=== PATIENT | female | born 1955 | race African-American/Black ===

== ENCOUNTER 2019-11-23 20:59 | Inpatient (IN) ==
[2019-11-23] MEDS ORDERED: PNEUMOCOCCAL VACCINE (23 VALENT) 0.5 ML VIAL IM ONE (23:23)
[2019-11-24] MEDS ORDERED: PROMETHAZINE 25 MG/1 ML VIAL IM PRN (00:40)
[2019-11-24] MEDS ORDERED: DEXTROSE 10% 250 ML BAG IV PRN (00:40)
[2019-11-24] MEDS ORDERED: ALBUTEROL 2.5 MG/3 ML NEB RESP TX PRN (00:40)
[2019-11-24] MEDS ORDERED: GLUCAGON 1 MG VIAL IM PRN (00:40)
[2019-11-24] MEDS ORDERED: ONDANSETRON 4 MG/2 ML VIAL IV PRN (00:40)
[2019-11-24] MEDS ORDERED: PANTOPRAZOLE 40 MG VIAL IV SCH (01:00)
[2019-11-24] MEDS ORDERED: SODIUM CHLORIDE 0.9% 1,000 ML IV SCH (01:00)
[2019-11-24] MEDS ORDERED: ENOXAPARIN 40 MG/0.4 ML SYRINGE SUBCUT SCH (01:30)
[2019-11-24 04:21] LABS: Basophils % 0.2 % (0.0-0.8); Hematocrit 41.8 VOL% (35.7-47.0); Immature Granulocytes % 0.5 %; Immature Granulocytes Absolute 0.03 #; Lymphocytes # 0.5 10*3/uL (1.4-4.0); Mean Corpuscular HGB Conc 31.1 GM/DL (32-36); Mean Corpuscular Volume 81.3 FL (87-102); Mean Platelet Volume 10.1 FL (9.6-12.0); Neutrophils % 87.3 % (38.7-73.9); Platelet Count 226 T/CUMM (130-400); Red Blood Count 5.14 MC/CUMM (3.8-5.5); Red Cell Distribution Width 15.8 % (9.3-17.3); White Blood Count 6.2 T/CUMM (4-12)
[2019-11-24 04:54] LABS: Calcium 8.5 MG/DL (8.5-10.1); Osmolality,Calculated 279.8 MOS/KG (273-304)
[2019-11-24] MEDS: INSULIN REGULAR 100 UNIT/ML SUBCUT SCH ×4 (08:12→21:17)
[2019-11-24] MEDS: amLODIPine 5 MG TABLET PO SCH (08:13)
[2019-11-24] MEDS: GABAPENTIN 300 MG CAPSULE PO SCH ×3 (08:13→20:20)
[2019-11-24] MEDS: metFORMIN 500 MG TABLET PO SCH ×2 (08:13→20:20)
[2019-11-24] MEDS: DEXAMETHASONE 4 MG/1 ML VIAL IV SCH (08:13)
[2019-11-24] MEDS: CALCIUM (CARBONATE)/VITAMIN D 600 MG-400 UNIT TABLET PO SCH (08:13)
[2019-11-24] MEDS: MONTELUKAST 10 MG TABLET PO SCH (08:13)
[2019-11-24 10:41] LABS: Allen Test Positive; Pt O2 Delivery Device Other
[2019-11-24 10:42] LABS: ABG HCO3 29.5 MMOL/L (20-26); ABG Oxygen Saturation 85.8 % (95-100); ABG PCO2 45.8 MM HG (35-48); ABG PO2 53.7 MM HG (80-95)
[2019-11-24] MEDS: ACETAMINOPHEN 325 MG TABLET PO PRN (12:05)
[2019-11-24] MEDS: ENOXAPARIN 60 MG/0.6 ML SYRINGE SUBCUT SCH (20:20)
[2019-11-25 03:53] LABS: Basophils % 0.1 % (0.0-0.8); Hematocrit 42.5 VOL% (35.7-47.0); Immature Granulocytes % 0.9 %; Immature Granulocytes Absolute 0.09 #; Lymphocytes # 0.6 10*3/uL (1.4-4.0); Lymphocytes % 5.5 % (21.3-54.2); Mean Corpuscular HGB Conc 30.6 GM/DL (32-36); Mean Corpuscular Volume 81.9 FL (87-102); Mean Platelet Volume 9.8 FL (9.6-12.0); Monocytes % 5.2 % (1.7-12.7); NRBC # 0.03 10*3/uL; Neutrophils % 88.3 % (38.7-73.9); Platelet Count 233 T/CUMM (130-400); Red Blood Count 5.19 MC/CUMM (3.8-5.5); Red Cell Distribution Width 15.8 % (9.3-17.3)
[2019-11-25 04:06] LABS: Calcium 8.7 MG/DL (8.5-10.1); Osmolality,Calculated 277.5 MOS/KG (273-304)
[2019-11-25 05:12] LABS: Allen Test Positive; Pt O2 Delivery Device Other
[2019-11-25 05:13] LABS: ABG Base Excess 7.6 MMOL/L (-2.5-2.5); ABG HCO3 32.1 MMOL/L (20-26); ABG Oxygen Saturation 82.7 % (95-100); ABG PCO2 44.6 MM HG (35-48); ABG PH 7.475 (7.35-7.45); ABG PO2 46.9 MM HG (80-95); ABG TCO2 33.5 MMOL/L (23-27)
[2019-11-25] MEDS ORDERED: PANTOPRAZOLE 40 MG VIAL IV ONE (07:49)
[2019-11-25] MEDS: DEXAMETHASONE 4 MG/1 ML VIAL IV SCH ×2 (07:56→20:25)
[2019-11-25] MEDS: INSULIN REGULAR 100 UNIT/ML SUBCUT SCH ×4 (07:57→21:24)
[2019-11-25] MEDS: ENOXAPARIN 60 MG/0.6 ML SYRINGE SUBCUT SCH ×2 (08:00→20:01)
[2019-11-25] MEDS: metFORMIN 500 MG TABLET PO SCH ×2 (08:00→20:26)
[2019-11-25] MEDS: amLODIPine 5 MG TABLET PO SCH (08:00)
[2019-11-25] MEDS: GABAPENTIN 300 MG CAPSULE PO SCH ×3 (08:01→20:00)
[2019-11-25] MEDS: CALCIUM (CARBONATE)/VITAMIN D 600 MG-400 UNIT TABLET PO SCH (08:01)
[2019-11-25] MEDS: PANTOPRAZOLE 40 MG VIAL IV SCH (08:01)
[2019-11-25] MEDS: MONTELUKAST 10 MG TABLET PO SCH (08:01)
[2019-11-25] MEDS ORDERED: POTASSIUM CHLORIDE 20 MEQ TABLET PO ONE (12:32)
[2019-11-25] MEDS: ACETAMINOPHEN 325 MG TABLET PO PRN (12:55)
[2019-11-26 04:35] LABS: Basophils % 0.1 % (0.0-0.8); Hematocrit 42.1 VOL% (35.7-47.0); Immature Granulocytes % 1.3 %; Immature Granulocytes Absolute 0.13 #; Lymphocytes # 0.5 10*3/uL (1.4-4.0); Mean Corpuscular HGB Conc 30.9 GM/DL (32-36); Mean Corpuscular Volume 80.8 FL (87-102); Mean Platelet Volume 9.8 FL (9.6-12.0); NRBC # 0.02 10*3/uL; Neutrophils % 90.6 % (38.7-73.9); Platelet Count 244 T/CUMM (130-400); Red Blood Count 5.21 MC/CUMM (3.8-5.5); Red Cell Distribution Width 15.9 % (9.3-17.3); White Blood Count 10.2 T/CUMM (4-12)
[2019-11-26 04:55] LABS: Lymphocytes 4 % (20-55); Platelet Estimate Adequate; Segmented Neutrophils 96 % (50-85); Total Cells Counted 100
[2019-11-26 04:56] LABS: Hypochromasia 1+
[2019-11-26 05:07] LABS: Calcium 8.8 MG/DL (8.5-10.1); Osmolality,Calculated 271.7 MOS/KG (273-304)
[2019-11-26 05:16] LABS: ABG Base Excess 6.4 MMOL/L (-2.5-2.5); ABG Oxygen Saturation 87.1 % (95-100); ABG PCO2 44.7 MM HG (35-48); ABG PH 7.453 (7.35-7.45); ABG TCO2 27.2 MMOL/L (23-27); Allen Test Positive; Pt O2 Delivery Device Other
[2019-11-26] MEDS ORDERED: SODIUM CHLORIDE 0.9% 1,000 ML IV PRN (07:22)
[2019-11-26] MEDS: INSULIN REGULAR 100 UNIT/ML SUBCUT SCH ×4 (07:50→21:32)
[2019-11-26] MEDS: PANTOPRAZOLE 40 MG VIAL IV SCH (08:10)
[2019-11-26] MEDS: DEXAMETHASONE 4 MG/1 ML VIAL IV SCH ×2 (08:18→22:00)
[2019-11-26] MEDS: GABAPENTIN 300 MG CAPSULE PO SCH ×3 (08:19→21:43)
[2019-11-26] MEDS: amLODIPine 5 MG TABLET PO SCH (08:20)
[2019-11-26] MEDS: ENOXAPARIN 60 MG/0.6 ML SYRINGE SUBCUT SCH ×2 (08:20→21:30)
[2019-11-26] MEDS: MONTELUKAST 10 MG TABLET PO SCH (08:20)
[2019-11-26] MEDS: CALCIUM (CARBONATE)/VITAMIN D 600 MG-400 UNIT TABLET PO SCH (08:20)
[2019-11-26] MEDS: metFORMIN 500 MG TABLET PO SCH ×2 (08:20→21:43)
[2019-11-26] MEDS ORDERED: FUROSEMIDE 40 MG/4 ML VIAL IV ONE (17:29)
[2019-11-26] MEDS: cefTRIAXone 1,000 MG in SYRINGE 1 EACH IV SCH (18:53)
[2019-11-26] MEDS: AZITHROMYCIN INJ 500 MG in SODIUM CHLORIDE 0.9% 250 ML IV SCH (19:17)
[2019-11-26 22:03] LABS: Bilirubin,Urine Negative (Negative); Blood, Urine Small mg/dL (Negative); Glucose,Urine (UA) Negative (Negative); Ketones,Urine Negative (Negative); Mucus,Urine Occasional /LPF (Occasional); Nitrite,Urine Negative (Negative); Protein,Urine Negative; RBC,Urine <1 /HPF (0-4); Urine Appearance CLEAR (Clear); Urine Color Straw (Yellow); Urine Specific Gravity 1.008 (1.001-1.035); Urine Urobilinogen < 2.0 EU/DL (0.2-1.0); WBC,Urine 1 /HPF (0-6)
[2019-11-27 04:34] LABS: Basophils % 0.3 % (0.0-0.8); Hemoglobin 12.7 GM/DL (12.0-16.0); Immature Granulocytes % 1.7 %; Mean Platelet Volume 10.1 FL (9.6-12.0); Monocytes % 3.9 % (1.7-12.7); Neutrophils % 86.1 % (38.7-73.9); Platelet Count 260 T/CUMM (130-400); Red Blood Count 5.06 MC/CUMM (3.8-5.5); Red Cell Distribution Width 15.9 % (9.3-17.3); White Blood Count 11.9 T/CUMM (4-12)
[2019-11-27 04:55] LABS: Eosinophils 1 % (0-10); Hypochromasia Slight; Lymphocytes 5 % (20-55); Platelet Estimate Adequate; Segmented Neutrophils 92 % (50-85); Total Cells Counted 100
[2019-11-27 05:04] LABS: Calcium 8.7 MG/DL (8.5-10.1); Osmolality,Calculated 277.8 MOS/KG (273-304)
[2019-11-27 05:35] LABS: Allen Test Positive
[2019-11-27 05:36] LABS: ABG Base Excess 7.1 MMOL/L (-2.5-2.5); ABG PCO2 46.2 MM HG (35-48); ABG PH 7.458 (7.35-7.45); ABG PO2 55.5 MM HG (80-95); ABG TCO2 33.4 MMOL/L (23-27)
[2019-11-27] MEDS: GABAPENTIN 300 MG CAPSULE PO SCH ×3 (08:16→20:33)
[2019-11-27] MEDS: CALCIUM (CARBONATE)/VITAMIN D 600 MG-400 UNIT TABLET PO SCH (08:16)
[2019-11-27] MEDS: MONTELUKAST 10 MG TABLET PO SCH (08:16)
[2019-11-27] MEDS: metFORMIN 500 MG TABLET PO SCH ×2 (08:16→20:33)
[2019-11-27] MEDS: amLODIPine 5 MG TABLET PO SCH (08:16)
[2019-11-27] MEDS: PANTOPRAZOLE 40 MG VIAL IV SCH (08:17)
[2019-11-27] MEDS: ENOXAPARIN 60 MG/0.6 ML SYRINGE SUBCUT SCH ×2 (08:17→20:33)
[2019-11-27] MEDS: DEXAMETHASONE 4 MG/1 ML VIAL IV SCH ×2 (08:18→20:26)
[2019-11-27] MEDS: INSULIN REGULAR 100 UNIT/ML SUBCUT SCH ×4 (10:51→20:33)
[2019-11-27] MEDS ORDERED: FUROSEMIDE 40 MG/4 ML VIAL IV ONE (20:06)
[2019-11-27] MEDS ORDERED: hydrALAZINE 20 MG/1 ML VIAL IV PRN (20:06)
[2019-11-27] MEDS ORDERED: FUROSEMIDE 40 MG/4 ML VIAL ONE (20:09)
[2019-11-27] MEDS: cefTRIAXone 1,000 MG in SYRINGE 1 EACH IV SCH (20:20)
[2019-11-27] MEDS: AZITHROMYCIN INJ 500 MG in SODIUM CHLORIDE 0.9% 250 ML IV SCH (20:25)
[2019-11-28 04:43] LABS: Basophils % 0.3 % (0.0-0.8); Hematocrit 39.4 VOL% (35.7-47.0); Hemoglobin 12.3 GM/DL (12.0-16.0); Immature Granulocytes % 2.3 %; Immature Granulocytes Absolute 0.27 #; Lymphocytes # 0.8 10*3/uL (1.4-4.0); Lymphocytes % 6.9 % (21.3-54.2); Mean Corpuscular HGB Conc 31.2 GM/DL (32-36); Mean Corpuscular Volume 81.2 FL (87-102); Mean Platelet Volume 9.5 FL (9.6-12.0); Monocytes % 4.5 % (1.7-12.7); NRBC # 0.02 10*3/uL; Platelet Count 245 T/CUMM (130-400); Red Blood Count 4.85 MC/CUMM (3.8-5.5); Red Cell Distribution Width 15.6 % (9.3-17.3); White Blood Count 11.9 T/CUMM (4-12)
[2019-11-28 04:59] LABS: Calcium 8.7 MG/DL (8.5-10.1)
[2019-11-28 05:06] LABS: Hypochromasia 1+; Lymphocytes 6 % (20-55); Microcytosis Slight; Platelet Estimate Adequate; Segmented Neutrophils 90 % (50-85); Total Cells Counted 100
[2019-11-28 05:28] LABS: ABG Base Excess 9.5 MMOL/L (-2.5-2.5); ABG HCO3 32.9 MMOL/L (20-26); ABG Oxygen Saturation 85.6 % (95-100); ABG PCO2 48.1 MM HG (35-48); ABG PH 7.467 (7.35-7.45); ABG PO2 52.7 MM HG (80-95); ABG TCO2 30.4 MMOL/L (23-27); Allen Test Positive
[2019-11-28] MEDS: DEXAMETHASONE 4 MG/1 ML VIAL IV SCH ×2 (10:11→20:25)
[2019-11-28] MEDS: PANTOPRAZOLE 40 MG VIAL IV SCH (10:11)
[2019-11-28] MEDS: CALCIUM (CARBONATE)/VITAMIN D 600 MG-400 UNIT TABLET PO SCH (10:12)
[2019-11-28] MEDS: ENOXAPARIN 60 MG/0.6 ML SYRINGE SUBCUT SCH ×2 (10:12→20:25)
[2019-11-28] MEDS: MONTELUKAST 10 MG TABLET PO SCH (10:12)
[2019-11-28] MEDS: GABAPENTIN 300 MG CAPSULE PO SCH ×3 (10:12→20:25)
[2019-11-28] MEDS: metFORMIN 500 MG TABLET PO SCH ×2 (10:12→20:25)
[2019-11-28] MEDS: amLODIPine 5 MG TABLET PO SCH (10:13)
[2019-11-28] MEDS: INSULIN REGULAR 100 UNIT/ML SUBCUT SCH ×4 (10:13→21:05)
[2019-11-28] MEDS ORDERED: FUROSEMIDE 40 MG/4 ML VIAL IV ONE (10:58)
[2019-11-28] MEDS ORDERED: POTASSIUM CHLORIDE 20 MEQ TABLET PO ONE (16:10)
[2019-11-28] MEDS: cefTRIAXone 1,000 MG in SYRINGE 1 EACH IV SCH (19:04)
[2019-11-28] MEDS: AZITHROMYCIN INJ 500 MG in SODIUM CHLORIDE 0.9% 250 ML IV SCH (19:04)
[2019-11-29 05:03] LABS: Basophils % 0.3 % (0.0-0.8); Hematocrit 41.3 VOL% (35.7-47.0); Hemoglobin 12.6 GM/DL (12.0-16.0); Immature Granulocytes % 1.8 %; Immature Granulocytes Absolute 0.27 #; Lymphocytes # 0.5 10*3/uL (1.4-4.0); Lymphocytes % 3.3 % (21.3-54.2); Mean Corpuscular HGB Conc 30.5 GM/DL (32-36); Mean Corpuscular Volume 83.6 FL (87-102); Mean Platelet Volume 10.2 FL (9.6-12.0); Monocytes % 2.5 % (1.7-12.7); NRBC # 0.02 10*3/uL; Neutrophils % 92.1 % (38.7-73.9); Platelet Count 274 T/CUMM (130-400); Red Blood Count 4.94 MC/CUMM (3.8-5.5); Red Cell Distribution Width 15.9 % (9.3-17.3); White Blood Count 14.9 T/CUMM (4-12)
[2019-11-29 05:29] LABS: Osmolality,Calculated 278.8 MOS/KG (273-304)
[2019-11-29 06:36] LABS: Band Neutrophils 1 % (0-10); Lymphocytes 2 % (20-55); Segmented Neutrophils 94 % (50-85); Total Cells Counted 100
[2019-11-29 06:37] LABS: Anisocytosis 1+; Platelet Estimate Normal
[2019-11-29] MEDS: INSULIN REGULAR 100 UNIT/ML SUBCUT SCH ×3 (08:00→18:45)
[2019-11-29 08:02] LABS: ABG Base Excess 7.1 MMOL/L (-2.5-2.5); ABG HCO3 30.1 MMOL/L (20-26); ABG Oxygen Saturation 63.4 % (95-100); ABG PCO2 47.6 MM HG (35-48); ABG PH 7.443 (7.35-7.45); ABG TCO2 28.6 MMOL/L (23-27)
[2019-11-29 08:04] LABS: ABG PO2 36.1 MM HG (80-95)
[2019-11-29] MEDS ORDERED: propofoL 200 MG/20 ML VIAL IV ONE (08:18)
[2019-11-29] MEDS ORDERED: MIDAZOLAM 10 MG/2 ML VIAL ONE (08:18)
[2019-11-29] MEDS ORDERED: SUCCINYLCHOLINE 200 MG/10 ML VIAL ONE (08:19)
[2019-11-29] MEDS ORDERED: MIDAZOLAM 2 MG/2 ML VIAL IV ONE ×4 (08:24→08:41)
[2019-11-29] MEDS ORDERED: SUCCINYLCHOLINE 200 MG/10 ML VIAL IV ONE (08:29)
[2019-11-29] MEDS: ENOXAPARIN 60 MG/0.6 ML SYRINGE SUBCUT SCH ×2 (09:00→20:10)
[2019-11-29] MEDS: PANTOPRAZOLE 40 MG VIAL IV SCH (09:00)
[2019-11-29] MEDS: CALCIUM (CARBONATE)/VITAMIN D 600 MG-400 UNIT TABLET PO SCH (09:00)
[2019-11-29] MEDS: metFORMIN 500 MG TABLET PO SCH ×2 (09:00→20:10)
[2019-11-29] MEDS: DEXAMETHASONE 4 MG/1 ML VIAL IV SCH ×2 (09:00→20:10)
[2019-11-29] MEDS: MONTELUKAST 10 MG TABLET PO SCH (09:01)
[2019-11-29] MEDS: GABAPENTIN 300 MG CAPSULE PO SCH ×2 (09:01→15:04)
[2019-11-29] MEDS: amLODIPine 5 MG TABLET PO SCH (09:01)
[2019-11-29] MEDS ORDERED: VECURONIUM 10 MG VIAL IV ONE (09:24)
[2019-11-29 09:36] LABS: ABG Base Excess 3.5 MMOL/L (-2.5-2.5); ABG HCO3 27.5 MMOL/L (20-26); ABG Oxygen Saturation 96.6 % (95-100); ABG PCO2 43.8 MM HG (35-48); ABG PH 7.421 (7.35-7.45); ABG PO2 93.3 MM HG (80-95); ABG TCO2 25.1 MMOL/L (23-27)
[2019-11-29] MEDS: fentaNYL INJ 1,250 MCG in SODIUM CHLORIDE 0.9% 225 ML IV PRN ×2 (09:45→21:14)
[2019-11-29] MEDS ORDERED: SODIUM CHLORIDE 0.9% 1,000 ML IV ONE (12:32)
[2019-11-29] MEDS ORDERED: NOREPINEPHRINE 8 MG in SODIUM CHLORIDE 0.9% 242 ML IV PRN (16:00)
[2019-11-29] MEDS: cefTRIAXone 1,000 MG in SYRINGE 1 EACH IV SCH (18:45)
[2019-11-29] MEDS: AZITHROMYCIN INJ 500 MG in SODIUM CHLORIDE 0.9% 250 ML IV SCH (18:45)
[2019-11-29] MEDS: GABAPENTIN 50 MG/ML 30 ML/BOTTLE PO SCH (21:55)
[2019-11-30] MEDS: INSULIN REGULAR 100 UNIT/ML SUBCUT SCH ×4 (00:33→17:45)
[2019-11-30 04:15] LABS: Basophils % 0.2 % (0.0-0.8); Hematocrit 38.8 VOL% (35.7-47.0); Hemoglobin 11.6 GM/DL (12.0-16.0); Immature Granulocytes % 2.8 %; Immature Granulocytes Absolute 0.35 #; Lymphocytes # 0.3 10*3/uL (1.4-4.0); Lymphocytes % 2.3 % (21.3-54.2); Mean Corpuscular HGB Conc 29.9 GM/DL (32-36); Mean Corpuscular Volume 83.6 FL (87-102); Mean Platelet Volume 11.4 FL (9.6-12.0); Monocytes % 2.3 % (1.7-12.7); NRBC # 0.02 10*3/uL; Neutrophils % 92.4 % (38.7-73.9); Platelet Count 283 T/CUMM (130-400); Red Blood Count 4.64 MC/CUMM (3.8-5.5); Red Cell Distribution Width 15.8 % (9.3-17.3); White Blood Count 12.3 T/CUMM (4-12)
[2019-11-30 04:29] LABS: Osmolality,Calculated 291.5 MOS/KG (273-304)
[2019-11-30 05:04] LABS: ABG Base Excess 2.5 MMOL/L (-2.5-2.5); ABG HCO3 28.9 MMOL/L (20-26); ABG Oxygen Saturation 94.3 % (95-100); ABG PCO2 52.3 MM HG (35-48); ABG PO2 78.7 MM HG (80-95); ABG TCO2 30.5 MMOL/L (23-27); Allen Test Positive; Pt O2 Delivery Device Ventilator
[2019-11-30] MEDS: fentaNYL INJ 1,250 MCG in SODIUM CHLORIDE 0.9% 225 ML IV PRN (06:59)
[2019-11-30 08:17] LABS: Band Neutrophils 6 % (0-10); Lymphocytes 3 % (20-55); Platelet Estimate Normal; Segmented Neutrophils 88 % (50-85); Total Cells Counted 100
[2019-11-30] MEDS: MIDAZOLAM 100 MG in SODIUM CHLORIDE 0.9% 80 ML IV PRN ×2 (08:40→23:30)
[2019-11-30] MEDS: DEXAMETHASONE 4 MG/1 ML VIAL IV SCH ×2 (08:58→20:15)
[2019-11-30] MEDS: ENOXAPARIN 60 MG/0.6 ML SYRINGE SUBCUT SCH ×2 (08:58→20:15)
[2019-11-30] MEDS: PANTOPRAZOLE 40 MG VIAL IV SCH (08:58)
[2019-11-30] MEDS: metFORMIN 500 MG TABLET PO SCH ×2 (08:59→20:15)
[2019-11-30] MEDS: MONTELUKAST 10 MG TABLET PO SCH (08:59)
[2019-11-30] MEDS: CALCIUM (CARBONATE)/VITAMIN D 600 MG-400 UNIT TABLET PO SCH (08:59)
[2019-11-30] MEDS: GABAPENTIN 50 MG/ML 30 ML/BOTTLE PO SCH ×3 (09:05→20:15)
[2019-11-30] MEDS: fentaNYL INJ 2,500 MCG in SODIUM CHLORIDE 0.9% 450 ML IV PRN ×4 (09:29→23:25)
[2019-11-30] MEDS ORDERED: REMDESIVIR 200 MG in SODIUM CHLORIDE 0.9% 210 ML IV ONE (17:00)
[2019-11-30] MEDS: cefTRIAXone 1,000 MG in SYRINGE 1 EACH IV SCH (17:31)
[2019-11-30] MEDS: AZITHROMYCIN INJ 500 MG in SODIUM CHLORIDE 0.9% 250 ML IV SCH (18:44)
[2019-12-01] MEDS: INSULIN REGULAR 100 UNIT/ML SUBCUT SCH ×4 (00:20→17:41)
[2019-12-01] MEDS: fentaNYL INJ 2,500 MCG in SODIUM CHLORIDE 0.9% 450 ML IV PRN ×6 (03:46→23:30)
[2019-12-01 03:49] LABS: Basophils % 0.1 % (0.0-0.8); Eosinophils % 0.1 % (0.00-10.9); Hemoglobin 10.7 GM/DL (12.0-16.0); Immature Granulocytes % 1.3 %; Immature Granulocytes Absolute 0.11 #; Lymphocytes # 0.3 10*3/uL (1.4-4.0); Lymphocytes % 3.4 % (21.3-54.2); Mean Corpuscular HGB Conc 29.4 GM/DL (32-36); Mean Corpuscular Volume 86.5 FL (87-102); Mean Platelet Volume 10.8 FL (9.6-12.0); Monocytes % 3.3 % (1.7-12.7); Neutrophils % 91.8 % (38.7-73.9); Platelet Count 219 T/CUMM (130-400); Red Blood Count 4.21 MC/CUMM (3.8-5.5); Red Cell Distribution Width 15.8 % (9.3-17.3); White Blood Count 8.5 T/CUMM (4-12)
[2019-12-01 04:09] LABS: Calcium 8.8 MG/DL (8.5-10.1); Osmolality,Calculated 301.6 MOS/KG (273-304)
[2019-12-01 04:22] LABS: Hematocrit 35.4 VOL% (35.7-47.0)
[2019-12-01 04:36] LABS: ABG Base Excess 1.4 MMOL/L (-2.5-2.5); ABG HCO3 25.6 MMOL/L (20-26); ABG Oxygen Saturation 97.4 % (95-100); ABG PCO2 50.7 MM HG (35-48); ABG PH 7.348 (7.35-7.45); ABG TCO2 24.9 MMOL/L (23-27); Allen Test Positive; Pt O2 Delivery Device Ventilator
[2019-12-01 04:55] LABS: Eosinophils 1 % (0-10); Hypochromasia 1+; Lymphocytes 4 % (20-55); Platelet Estimate Adequate; Segmented Neutrophils 89 % (50-85); Total Cells Counted 100
[2019-12-01] MEDS: ENOXAPARIN 60 MG/0.6 ML SYRINGE SUBCUT SCH ×2 (08:43→20:05)
[2019-12-01] MEDS: CALCIUM (CARBONATE)/VITAMIN D 600 MG-400 UNIT TABLET PO SCH (08:43)
[2019-12-01] MEDS: MONTELUKAST 10 MG TABLET PO SCH (08:43)
[2019-12-01] MEDS: metFORMIN 500 MG TABLET PO SCH (08:43)
[2019-12-01] MEDS: PANTOPRAZOLE 40 MG VIAL IV SCH (08:43)
[2019-12-01] MEDS: GABAPENTIN 50 MG/ML 30 ML/BOTTLE PO SCH ×3 (08:45→20:05)
[2019-12-01] MEDS: DEXAMETHASONE 4 MG/1 ML VIAL IV SCH ×2 (08:51→20:05)
[2019-12-01] MEDS: ACETAMINOPHEN 325 MG TABLET PO PRN ×2 (13:05→20:05)
[2019-12-01] MEDS: ROCURONIUM 500 MG in SODIUM CHLORIDE 0.9% 500 ML IV PRN ×2 (14:25→23:19)
[2019-12-01] MEDS: REMDESIVIR 100 MG in SODIUM CHLORIDE 0.9% 230 ML IV SCH (16:09)
[2019-12-01] MEDS: MIDAZOLAM 100 MG in SODIUM CHLORIDE 0.9% 80 ML IV PRN (16:17)
[2019-12-01] MEDS: cefTRIAXone 1,000 MG in SYRINGE 1 EACH IV SCH (17:40)
[2019-12-02] MEDS: ACETAMINOPHEN 325 MG TABLET PO PRN ×3 (00:30→20:32)
[2019-12-02] MEDS: INSULIN REGULAR 100 UNIT/ML SUBCUT SCH ×4 (00:52→18:17)
[2019-12-02] MEDS: fentaNYL INJ 2,500 MCG in SODIUM CHLORIDE 0.9% 450 ML IV PRN ×2 (02:58→06:26)
[2019-12-02 03:44] LABS: ABG Base Excess 0.7 MMOL/L (-2.5-2.5); ABG Oxygen Saturation 95.7 % (95-100); ABG PCO2 59.3 MM HG (35-48); ABG PH 7.295 (7.35-7.45); ABG PO2 88.6 MM HG (80-95); ABG TCO2 25.6 MMOL/L (23-27); Allen Test Positive; Pt O2 Delivery Device Ventilator
[2019-12-02 05:09] LABS: Basophils % 0.1 % (0.0-0.8); Eosinophils % 0.1 % (0.00-10.9); Hematocrit 34.4 VOL% (35.7-47.0); Hemoglobin 10.2 GM/DL (12.0-16.0); Immature Granulocytes % 1.1 %; Immature Granulocytes Absolute 0.08 #; Lymphocytes # 0.3 10*3/uL (1.4-4.0); Lymphocytes % 3.8 % (21.3-54.2); Mean Corpuscular HGB Conc 29.7 GM/DL (32-36); Mean Corpuscular Volume 86.2 FL (87-102); Mean Platelet Volume 10.9 FL (9.6-12.0); Monocytes % 3.7 % (1.7-12.7); Neutrophils % 91.2 % (38.7-73.9); Platelet Count 193 T/CUMM (130-400); Red Blood Count 3.99 MC/CUMM (3.8-5.5); Red Cell Distribution Width 15.9 % (9.3-17.3); White Blood Count 7.5 T/CUMM (4-12)
[2019-12-02 05:21] LABS: Hypochromasia 1+; Lymphocytes 5 % (20-55); Platelet Estimate Adequate; Segmented Neutrophils 90 % (50-85); Total Cells Counted 100
[2019-12-02 05:22] LABS: Albumin 1.9 G/DL (3.4-5.0); Bilirubin,Total 0.4 MG/DL (0.2-1.0); Calcium 8.6 MG/DL (8.5-10.1); Osmolality,Calculated 308.1 MOS/KG (273-304); Total Protein 6.7 G/DL (6.4-8.3)
[2019-12-02] MEDS: MIDAZOLAM 100 MG in SODIUM CHLORIDE 0.9% 80 ML IV PRN ×2 (06:00→20:03)
[2019-12-02 06:04] LABS: INR 1.1; PT Patient Result 12.2 SECS (9.8-11.9)
[2019-12-02 06:16] LABS: Alanine Aminotransferase 32 U/L (13-56); Aspartate Amino Transferase 27 U/L (0-37)
[2019-12-02] MEDS: GABAPENTIN 50 MG/ML 30 ML/BOTTLE PO SCH ×3 (08:54→20:32)
[2019-12-02] MEDS: ENOXAPARIN 60 MG/0.6 ML SYRINGE SUBCUT SCH ×2 (08:55→20:32)
[2019-12-02] MEDS: CALCIUM (CARBONATE)/VITAMIN D 600 MG-400 UNIT TABLET PO SCH (08:55)
[2019-12-02] MEDS: MONTELUKAST 10 MG TABLET PO SCH (08:55)
[2019-12-02] MEDS: DEXAMETHASONE 4 MG/1 ML VIAL IV SCH ×2 (09:00→20:32)
[2019-12-02] MEDS: PANTOPRAZOLE 40 MG VIAL IV SCH (09:02)
[2019-12-02] MEDS: fentaNYL INJ 2,500 MCG in DEXTROSE 5% 75 ML IV PRN ×4 (10:00→21:06)
[2019-12-02] MEDS: ROCURONIUM 500 MG in SODIUM CHLORIDE 0.9% 500 ML IV PRN (10:22)
[2019-12-02 12:31] LABS: ABG Base Excess 1.2 MMOL/L (-2.5-2.5); ABG HCO3 25.4 MMOL/L (20-26); ABG Oxygen Saturation 92.6 % (95-100); ABG PH 7.235 (7.35-7.45); ABG PO2 74.8 MM HG (80-95); ABG TCO2 28.4 MMOL/L (23-27)
[2019-12-02 12:35] LABS: ABG PCO2 72.6 MM HG (35-48)
[2019-12-02 15:22] LABS: ABG Base Excess 2.4 MMOL/L (-2.5-2.5); ABG HCO3 26.4 MMOL/L (20-26); ABG PCO2 68.3 MM HG (35-48); ABG PH 7.267 (7.35-7.45); ABG PO2 69.2 MM HG (80-95); ABG TCO2 28.7 MMOL/L (23-27)
[2019-12-02] MEDS: cefTRIAXone 1,000 MG in SYRINGE 1 EACH IV SCH (18:16)
[2019-12-02] MEDS: REMDESIVIR 100 MG in SODIUM CHLORIDE 0.9% 230 ML IV SCH (18:18)
[2019-12-02] MEDS: ROCURONIUM 1,000 MG in DEXTROSE 5% 175 ML IV PRN (20:49)
[2019-12-02] MEDS ORDERED: INSULIN GLARGINE 100 UNIT/ML SUBCUT SCH (21:00)
[2019-12-03] MEDS: fentaNYL INJ 2,500 MCG in DEXTROSE 5% 75 ML IV PRN ×7 (00:27→20:56)
[2019-12-03] MEDS: INSULIN REGULAR 100 UNIT/ML SUBCUT SCH ×4 (01:09→17:49)
[2019-12-03 03:47] LABS: Basophils % 0.1 % (0.0-0.8); Hematocrit 34.9 VOL% (35.7-47.0); Immature Granulocytes Absolute 0.07 #; Lymphocytes # 0.3 10*3/uL (1.4-4.0); Lymphocytes % 3.8 % (21.3-54.2); Mean Corpuscular HGB Conc 28.9 GM/DL (32-36); Mean Corpuscular Volume 87.7 FL (87-102); Mean Platelet Volume 10.5 FL (9.6-12.0); Monocytes % 4.7 % (1.7-12.7); Neutrophils % 90.4 % (38.7-73.9); Platelet Count 159 T/CUMM (130-400); Red Blood Count 3.98 MC/CUMM (3.8-5.5); White Blood Count 7.1 T/CUMM (4-12)
[2019-12-03 04:18] LABS: Alanine Aminotransferase 35 U/L (13-56); Albumin 1.9 G/DL (3.4-5.0); Alkaline Phosphatase 60 U/L (45-117); Aspartate Amino Transferase 32 U/L (0-37); Bilirubin,Total < 0.39 MG/DL (0.2-1.0); Blood Urea Nitrogen 29 MG/DL (7-18); Calcium 9.1 MG/DL (8.5-10.1); Estimated Glom Filtration Rate 151 ML/MIN; Glucose 241 MG/DL (74-106); Osmolality,Calculated 305.4 MOS/KG (273-304); Total Protein 6.6 G/DL (6.4-8.3)
[2019-12-03 04:28] LABS: ABG Base Excess 5.2 MMOL/L (-2.5-2.5); ABG Oxygen Saturation 92.6 % (95-100); ABG PCO2 66.9 MM HG (35-48); ABG PH 7.311 (7.35-7.45); ABG PO2 67.9 MM HG (80-95); ABG TCO2 35.1 MMOL/L (23-27); Allen Test Positive; Pt O2 Delivery Device Ventilator
[2019-12-03 04:29] LABS: INR 1.2; PT Patient Result 12.7 SECS (9.8-11.9)
[2019-12-03 04:57] LABS: Hemoglobin 10.1 GM/DL (12.0-16.0)
[2019-12-03 05:08] LABS: Hypochromasia 1+; Lymphocytes 7 % (20-55); Platelet Estimate Adequate; Segmented Neutrophils 81 % (50-85); Total Cells Counted 100
[2019-12-03] MEDS: CALCIUM (CARBONATE)/VITAMIN D 600 MG-400 UNIT TABLET PO SCH (08:23)
[2019-12-03] MEDS: ENOXAPARIN 60 MG/0.6 ML SYRINGE SUBCUT SCH ×2 (08:23→20:57)
[2019-12-03] MEDS: PANTOPRAZOLE 40 MG VIAL IV SCH (08:23)
[2019-12-03] MEDS: GABAPENTIN 50 MG/ML 30 ML/BOTTLE PO SCH ×3 (08:24→20:57)
[2019-12-03] MEDS: MONTELUKAST 10 MG TABLET PO SCH (08:24)
[2019-12-03] MEDS: DEXAMETHASONE 4 MG/1 ML VIAL IV SCH ×2 (08:33→20:57)
[2019-12-03] MEDS ORDERED: LORazepam 2 MG/1 ML VIAL IV ONE (10:44)
[2019-12-03] MEDS: MIDAZOLAM 100 MG in SODIUM CHLORIDE 0.9% 80 ML IV PRN ×2 (12:24→22:30)
[2019-12-03] MEDS: REMDESIVIR 100 MG in SODIUM CHLORIDE 0.9% 230 ML IV SCH (17:45)
[2019-12-03] MEDS: cefTRIAXone 1,000 MG in SYRINGE 1 EACH IV SCH (17:49)
[2019-12-03] MEDS: INSULIN GLARGINE 100 UNIT/ML SUBCUT SCH (20:57)
[2019-12-03] MEDS: ACETAMINOPHEN 325 MG TABLET PO PRN (21:17)
[2019-12-04] MEDS: INSULIN REGULAR 100 UNIT/ML SUBCUT SCH ×4 (00:24→17:50)
[2019-12-04] MEDS: ACETAMINOPHEN 325 MG TABLET PO PRN ×2 (01:04→17:30)
[2019-12-04] MEDS: FENTANYL IV PRN ×3 (03:07→22:13)
[2019-12-04] MEDS: DEXTROSE 5% IV PRN ×3 (03:07→22:13)
[2019-12-04 04:58] LABS: Calcium 9.3 MG/DL (8.5-10.1); Osmolality,Calculated 298.1 MOS/KG (273-304)
[2019-12-04 04:59] LABS: Alanine Aminotransferase 57 U/L (13-56); Aspartate Amino Transferase 48 U/L (0-37)
[2019-12-04 06:18] LABS: Basophils % 0.1 % (0.0-0.8); Eosinophils % 0.1 % (0.00-10.9); Hematocrit 36.1 VOL% (35.7-47.0); Immature Granulocytes % 0.7 %; Lymphocytes # 0.3 10*3/uL (1.4-4.0); Lymphocytes % 2.3 % (21.3-54.2); Mean Corpuscular HGB Conc 28.8 GM/DL (32-36); Mean Corpuscular Volume 87.8 FL (87-102); Monocytes % 3.8 % (1.7-12.7); Platelet Count 164 T/CUMM (130-400); Red Blood Count 4.11 MC/CUMM (3.8-5.5); Red Cell Distribution Width 15.7 % (9.3-17.3); White Blood Count 13.7 T/CUMM (4-12)
[2019-12-04 06:21] LABS: Hemoglobin 10.4 GM/DL (12.0-16.0)
[2019-12-04 06:25] LABS: Hypochromasia 1+; Lymphocytes 1 % (20-55); Ovalocytes Slight; Platelet Estimate Adequate; Segmented Neutrophils 90 % (50-85); Total Cells Counted 100
[2019-12-04] MEDS: MIDAZOLAM 100 MG in SODIUM CHLORIDE 0.9% 80 ML IV PRN ×2 (07:08→17:08)
[2019-12-04] MEDS: CALCIUM (CARBONATE)/VITAMIN D 600 MG-400 UNIT TABLET PO SCH (08:14)
[2019-12-04] MEDS: ENOXAPARIN 60 MG/0.6 ML SYRINGE SUBCUT SCH ×2 (08:14→20:53)
[2019-12-04] MEDS: MONTELUKAST 10 MG TABLET PO SCH (08:14)
[2019-12-04] MEDS: PANTOPRAZOLE 40 MG VIAL IV SCH (08:14)
[2019-12-04] MEDS: DEXAMETHASONE 4 MG/1 ML VIAL IV SCH ×2 (08:14→20:52)
[2019-12-04] MEDS: GABAPENTIN 50 MG/ML 30 ML/BOTTLE PO SCH ×3 (08:14→20:53)
[2019-12-04] MEDS ORDERED: ROCURONIUM 100 MG/10 ML VIAL IV ONE (09:06)
[2019-12-04] MEDS: ARFORMOTEROL 15 MCG/2 ML NEB RESP TX SCH ×2 (09:40→19:27)
[2019-12-04] MEDS: ALBUTEROL/IPRATROPIUM 3 ML NEB RESP TX SCH ×5 (09:40→23:29)
[2019-12-04] MEDS: ROCURONIUM 1,000 MG in DEXTROSE 5% 175 ML IV PRN (09:57)
[2019-12-04 10:16] LABS: ABG Base Excess 4.8 MMOL/L (-2.5-2.5); ABG HCO3 28.7 MMOL/L (20-26); ABG PO2 97.6 MM HG (80-95); ABG TCO2 35.3 MMOL/L (23-27)
[2019-12-04 11:09] LABS: ABG Base Excess 4.7 MMOL/L (-2.5-2.5); ABG HCO3 28.6 MMOL/L (20-26); ABG Oxygen Saturation 95.4 % (95-100); ABG PO2 92.2 MM HG (80-95); ABG TCO2 34.4 MMOL/L (23-27)
[2019-12-04 11:13] LABS: ABG PCO2 99.3 MM HG (35-48)
[2019-12-04] MEDS ORDERED: DIGOXIN 0.5 MG/2 ML AMP IV ONE ×2 (12:34→13:30)
[2019-12-04] MEDS: MEROPENEM 500 MG in SODIUM CHLORIDE 0.9% 100 ML IV SCH ×2 (16:20→23:18)
[2019-12-04] MEDS: REMDESIVIR 100 MG in SODIUM CHLORIDE 0.9% 230 ML IV SCH (17:05)
[2019-12-04] MEDS: VANCOMYCIN INJ 2,000 MG in SODIUM CHLORIDE 0.9% 500 ML IV SCH (20:52)
[2019-12-04] MEDS: INSULIN GLARGINE 100 UNIT/ML SUBCUT SCH (20:52)
[2019-12-04] MEDS: METOPROLOL TARTRATE 25 MG TABLET PO SCH (20:53)
[2019-12-05] MEDS: INSULIN REGULAR 100 UNIT/ML SUBCUT SCH ×4 (00:34→17:29)
[2019-12-05] MEDS: ALBUTEROL/IPRATROPIUM 3 ML NEB RESP TX SCH ×5 (02:51→20:04)
[2019-12-05] MEDS: MIDAZOLAM 100 MG in SODIUM CHLORIDE 0.9% 80 ML IV PRN ×3 (03:25→20:43)
[2019-12-05] MEDS: MEROPENEM 500 MG in SODIUM CHLORIDE 0.9% 100 ML IV SCH ×4 (04:46→22:41)
[2019-12-05 04:54] LABS: ABG Base Excess 6.1 MMOL/L (-2.5-2.5); ABG HCO3 29.9 MMOL/L (20-26); ABG Oxygen Saturation 97.8 % (95-100); ABG PH 7.242 (7.35-7.45); ABG TCO2 33.7 MMOL/L (23-27); Allen Test Positive; Pt O2 Delivery Device Ventilator
[2019-12-05 05:02] LABS: ABG PCO2 84.9 MM HG (35-48)
[2019-12-05 05:06] LABS: Calcium 9.3 MG/DL (8.5-10.1); Osmolality,Calculated 301.1 MOS/KG (273-304)
[2019-12-05 05:41] LABS: Hematocrit 35.4 VOL% (35.7-47.0); Hemoglobin 9.7 GM/DL (12.0-16.0); Lymphocytes # 0.3 10*3/uL (1.4-4.0); Lymphocytes % 3.3 % (21.3-54.2); Mean Corpuscular HGB Conc 27.4 GM/DL (32-36); Mean Corpuscular Volume 91.9 FL (87-102); Mean Platelet Volume 11.8 FL (9.6-12.0); Monocytes % 3.6 % (1.7-12.7); Neutrophils % 92.1 % (38.7-73.9); Platelet Count 223 T/CUMM (130-400); Red Blood Count 3.85 MC/CUMM (3.8-5.5); Red Cell Distribution Width 15.1 % (9.3-17.3); White Blood Count 10.1 T/CUMM (4-12)
[2019-12-05 05:51] LABS: Bilirubin,Urine Negative (Negative); Blood, Urine Negative (Negative); Glucose,Urine (UA) 150 mg/dL (Negative); Ketones,Urine Negative (Negative); Mucus,Urine Few /LPF (Occasional); Nitrite,Urine Negative (Negative); Protein,Urine Negative; RBC,Urine 197 /HPF (0-4); Urine Appearance CLOUDY (Clear); Urine Color Yellow (Yellow); Urine Specific Gravity 1.019 (1.001-1.035); Urine Urobilinogen < 2.0 EU/DL (0.2-1.0); WBC,Urine 24 /HPF (0-6)
[2019-12-05 07:00] LABS: Band Neutrophils 5 % (0-10); Lymphocytes 3 % (20-55); Metamyelocytes 1 %; Segmented Neutrophils 88 % (50-85); Total Cells Counted 100
[2019-12-05 07:01] LABS: Anisocytosis 1+; Hypochromasia 3+; Microcytosis Slight; Ovalocytes Few; Platelet Estimate Normal
[2019-12-05 07:02] LABS: Schistocytes Slight
[2019-12-05] MEDS: ENOXAPARIN 60 MG/0.6 ML SYRINGE SUBCUT SCH ×2 (08:54→20:42)
[2019-12-05] MEDS: PANTOPRAZOLE 40 MG VIAL IV SCH (08:54)
[2019-12-05] MEDS: CALCIUM (CARBONATE)/VITAMIN D 600 MG-400 UNIT TABLET PO SCH (08:55)
[2019-12-05] MEDS: MONTELUKAST 10 MG TABLET PO SCH (08:55)
[2019-12-05] MEDS: METOPROLOL TARTRATE 25 MG TABLET PO SCH ×2 (08:55→20:42)
[2019-12-05] MEDS: ARFORMOTEROL 15 MCG/2 ML NEB RESP TX SCH ×2 (09:00→20:05)
[2019-12-05] MEDS: GABAPENTIN 50 MG/ML 30 ML/BOTTLE PO SCH ×3 (09:28→20:42)
[2019-12-05] MEDS: DEXAMETHASONE 4 MG/1 ML VIAL IV SCH ×2 (09:29→20:42)
[2019-12-05] MEDS: ROCURONIUM 1,000 MG in DEXTROSE 5% 175 ML IV PRN (09:30)
[2019-12-05] MEDS: VANCOMYCIN INJ 2,000 MG in SODIUM CHLORIDE 0.9% 500 ML IV SCH ×2 (09:31→20:42)
[2019-12-05] MEDS: FENTANYL IV PRN ×2 (09:44→20:42)
[2019-12-05] MEDS: DEXTROSE 5% IV PRN ×2 (09:44→20:42)
[2019-12-05] MEDS: INSULIN GLARGINE 100 UNIT/ML SUBCUT SCH (20:42)
[2019-12-06] MEDS: ALBUTEROL/IPRATROPIUM 3 ML NEB RESP TX SCH ×6 (00:14→19:45)
[2019-12-06] MEDS: INSULIN REGULAR 100 UNIT/ML SUBCUT SCH ×4 (01:08→17:59)
[2019-12-06] MEDS: SODIUM CHLORIDE 0.45% 1,000 ML IV SCH ×2 (02:04→16:45)
[2019-12-06] MEDS: ROCURONIUM 1,000 MG in DEXTROSE 5% 175 ML IV PRN (03:22)
[2019-12-06] MEDS: MIDAZOLAM 100 MG in SODIUM CHLORIDE 0.9% 80 ML IV PRN ×3 (03:23→20:49)
[2019-12-06] MEDS: MEROPENEM 500 MG in SODIUM CHLORIDE 0.9% 100 ML IV SCH ×4 (04:41→22:25)
[2019-12-06 05:12] LABS: Basophils % 0.1 % (0.0-0.8); Eosinophils % 0.1 % (0.00-10.9); Hematocrit 37.6 VOL% (35.7-47.0); Immature Granulocytes % 1.4 %; Immature Granulocytes Absolute 0.19 #; Lymphocytes # 0.3 10*3/uL (1.4-4.0); Lymphocytes % 2.1 % (21.3-54.2); Mean Corpuscular HGB Conc 27.4 GM/DL (32-36); Mean Corpuscular Volume 91.9 FL (87-102); Mean Platelet Volume 11.4 FL (9.6-12.0); Monocytes % 4.6 % (1.7-12.7); NRBC # 0.02 10*3/uL; Neutrophils % 91.7 % (38.7-73.9); Platelet Count 268 T/CUMM (130-400); Red Blood Count 4.09 MC/CUMM (3.8-5.5); White Blood Count 13.6 T/CUMM (4-12)
[2019-12-06 05:14] LABS: Allen Test Positive; Pt O2 Delivery Device Ventilator
[2019-12-06 05:15] LABS: Hemoglobin 10.3 GM/DL (12.0-16.0)
[2019-12-06 05:17] LABS: ABG Base Excess 5.3 MMOL/L (-2.5-2.5); ABG HCO3 29.1 MMOL/L (20-26); ABG Oxygen Saturation 93.5 % (95-100); ABG PH 7.233 (7.35-7.45); ABG PO2 74.4 MM HG (80-95); ABG TCO2 33.1 MMOL/L (23-27)
[2019-12-06 05:18] LABS: ABG PCO2 84.9 MM HG (35-48)
[2019-12-06 05:30] LABS: Band Neutrophils 1 % (0-10); Hypochromasia 1+; Lymphocytes 1 % (20-55); Microcytosis Slight; Platelet Estimate Adequate; Segmented Neutrophils 94 % (50-85); Total Cells Counted 100
[2019-12-06 06:02] LABS: Calcium 9.6 MG/DL (8.5-10.1); Osmolality,Calculated 300.4 MOS/KG (273-304)
[2019-12-06] MEDS: DEXTROSE 5% IV PRN ×2 (07:00→16:45)
[2019-12-06] MEDS: FENTANYL IV PRN ×2 (07:00→16:45)
[2019-12-06] MEDS: ARFORMOTEROL 15 MCG/2 ML NEB RESP TX SCH ×2 (07:45→19:45)
[2019-12-06] MEDS: CALCIUM (CARBONATE)/VITAMIN D 600 MG-400 UNIT TABLET PO SCH (08:28)
[2019-12-06] MEDS: GABAPENTIN 50 MG/ML 30 ML/BOTTLE PO SCH ×3 (08:28→20:41)
[2019-12-06] MEDS: MONTELUKAST 10 MG TABLET PO SCH (08:28)
[2019-12-06] MEDS: METOPROLOL TARTRATE 25 MG TABLET PO SCH ×2 (08:28→20:41)
[2019-12-06] MEDS: ENOXAPARIN 60 MG/0.6 ML SYRINGE SUBCUT SCH ×2 (08:28→20:41)
[2019-12-06] MEDS: PANTOPRAZOLE 40 MG VIAL IV SCH (08:31)
[2019-12-06] MEDS: DEXAMETHASONE 4 MG/1 ML VIAL IV SCH ×2 (08:32→20:41)
[2019-12-06] MEDS: FLUCONAZOLE INJ 400 MG in PREMIX 1 EACH IV SCH (18:41)
[2019-12-06] MEDS: INSULIN GLARGINE 100 UNIT/ML SUBCUT SCH (20:41)
[2019-12-06] MEDS: VANCOMYCIN INJ 2,000 MG in SODIUM CHLORIDE 0.9% 500 ML IV SCH (21:00)
[2019-12-07] MEDS: SODIUM CHLORIDE 0.45% 1,000 ML IV SCH ×2 (00:10→09:16)
[2019-12-07] MEDS: ALBUTEROL/IPRATROPIUM 3 ML NEB RESP TX SCH ×6 (00:13→20:50)
[2019-12-07] MEDS: ROCURONIUM 1,000 MG in DEXTROSE 5% 175 ML IV PRN (00:13)
[2019-12-07] MEDS: INSULIN REGULAR 100 UNIT/ML SUBCUT SCH ×4 (00:53→18:08)
[2019-12-07] MEDS: DEXTROSE 5% IV PRN (01:45)
[2019-12-07] MEDS: FENTANYL IV PRN (01:45)
[2019-12-07 04:54] LABS: Calcium 9.7 MG/DL (8.5-10.1); Osmolality,Calculated 306.5 MOS/KG (273-304)
[2019-12-07] MEDS: MEROPENEM 500 MG in SODIUM CHLORIDE 0.9% 100 ML IV SCH ×4 (04:54→21:44)
[2019-12-07 05:01] LABS: Basophils % 0.1 % (0.0-0.8); Hematocrit 34.9 VOL% (35.7-47.0); Hemoglobin 9.8 GM/DL (12.0-16.0); Immature Granulocytes % 0.7 %; Immature Granulocytes Absolute 0.09 #; Lymphocytes # 0.3 10*3/uL (1.4-4.0); Lymphocytes % 1.9 % (21.3-54.2); Mean Corpuscular HGB Conc 28.1 GM/DL (32-36); Mean Corpuscular Volume 90.6 FL (87-102); Mean Platelet Volume 11.3 FL (9.6-12.0); Monocytes % 2.9 % (1.7-12.7); NRBC # 0.02 10*3/uL; Neutrophils % 94.4 % (38.7-73.9); Platelet Count 232 T/CUMM (130-400); Red Blood Count 3.85 MC/CUMM (3.8-5.5); White Blood Count 13.1 T/CUMM (4-12)
[2019-12-07 05:08] LABS: Hypochromasia 1+; Lymphocytes 3 % (20-55); Ovalocytes Slight; Platelet Estimate Adequate; Segmented Neutrophils 91 % (50-85); Total Cells Counted 100
[2019-12-07 05:09] LABS: Microcytosis Slight
[2019-12-07 05:16] LABS: ABG Base Excess 5.4 MMOL/L (-2.5-2.5); ABG HCO3 29.3 MMOL/L (20-26); ABG Oxygen Saturation 97.4 % (95-100); ABG TCO2 34.4 MMOL/L (23-27)
[2019-12-07 05:20] LABS: ABG PCO2 94.6 MM HG (35-48); ABG PH 7.197 (7.35-7.45)
[2019-12-07] MEDS: MIDAZOLAM 100 MG in SODIUM CHLORIDE 0.9% 80 ML IV PRN (05:39)
[2019-12-07] MEDS: MONTELUKAST 10 MG TABLET PO SCH (09:03)
[2019-12-07] MEDS: ENOXAPARIN 60 MG/0.6 ML SYRINGE SUBCUT SCH ×2 (09:03→20:58)
[2019-12-07] MEDS: CALCIUM (CARBONATE)/VITAMIN D 600 MG-400 UNIT TABLET PO SCH (09:03)
[2019-12-07] MEDS: METOPROLOL TARTRATE 25 MG TABLET PO SCH ×2 (09:03→20:58)
[2019-12-07] MEDS: GABAPENTIN 50 MG/ML 30 ML/BOTTLE PO SCH ×3 (09:03→20:58)
[2019-12-07] MEDS: PANTOPRAZOLE 40 MG VIAL IV SCH (09:03)
[2019-12-07] MEDS: DEXAMETHASONE 4 MG/1 ML VIAL IV SCH ×2 (09:08→20:58)
[2019-12-07] MEDS: ARFORMOTEROL 15 MCG/2 ML NEB RESP TX SCH ×2 (10:35→20:50)
[2019-12-07] MEDS ORDERED: INSULIN GLARGINE 100 UNIT/ML SUBCUT SCH (10:47)
[2019-12-07 12:54] LABS: Calcium 9.9 MG/DL (8.5-10.1); Osmolality,Calculated 301.5 MOS/KG (273-304)
[2019-12-07] MEDS ORDERED: SODIUM POLYSTYRENE SULFATE 15 GM/60 ML BOTTLE PO STA (13:51)
[2019-12-07] MEDS: SODIUM CHLORIDE 0.9% 1,000 ML IV SCH ×2 (14:21→18:09)
[2019-12-07] MEDS: FLUCONAZOLE INJ 400 MG in PREMIX 1 EACH IV SCH (18:08)
[2019-12-07] MEDS: VANCOMYCIN INJ 2,000 MG in SODIUM CHLORIDE 0.9% 500 ML IV SCH (20:58)
[2019-12-08] MEDS: ALBUTEROL/IPRATROPIUM 3 ML NEB RESP TX SCH ×3 (00:10→09:31)
[2019-12-08] MEDS: INSULIN REGULAR 100 UNIT/ML SUBCUT SCH ×4 (00:20→18:17)
[2019-12-08 04:15] LABS: ABG Base Excess 12.3 MMOL/L (-2.5-2.5); ABG HCO3 39.5 MMOL/L (20-26); ABG Oxygen Saturation 92.9 % (95-100); ABG PCO2 67.2 MM HG (35-48); ABG PH 7.387 (7.35-7.45); ABG PO2 66.2 MM HG (80-95); ABG TCO2 41.6 MMOL/L (23-27)
[2019-12-08] MEDS: MIDAZOLAM 100 MG in SODIUM CHLORIDE 0.9% 80 ML IV PRN ×2 (04:48→18:58)
[2019-12-08] MEDS: SODIUM CHLORIDE 0.9% 1,000 ML IV SCH (04:56)
[2019-12-08] MEDS: MEROPENEM 500 MG in SODIUM CHLORIDE 0.9% 100 ML IV SCH ×4 (05:36→23:40)
[2019-12-08] MEDS: FENTANYL IV PRN ×2 (05:38→16:30)
[2019-12-08] MEDS: DEXTROSE 5% IV PRN ×2 (05:38→16:30)
[2019-12-08 07:02] LABS: Basophils % 0.1 % (0.0-0.8); Hematocrit 34.6 VOL% (35.7-47.0); Immature Granulocytes % 1.6 %; Immature Granulocytes Absolute 0.25 #; Lymphocytes # 0.3 10*3/uL (1.4-4.0); Mean Corpuscular Volume 88.9 FL (87-102); Mean Platelet Volume 11.9 FL (9.6-12.0); NRBC # 0.02 10*3/uL; Neutrophils % 92.3 % (38.7-73.9); Platelet Count 243 T/CUMM (130-400); Red Blood Count 3.89 MC/CUMM (3.8-5.5); Red Cell Distribution Width 15.2 % (9.3-17.3); White Blood Count 15.7 T/CUMM (4-12)
[2019-12-08 07:05] LABS: Hemoglobin 9.7 GM/DL (12.0-16.0)
[2019-12-08 07:17] LABS: Lymphocytes 2 % (20-55); Platelet Estimate Adequate; Segmented Neutrophils 92 % (50-85); Total Cells Counted 100
[2019-12-08 07:18] LABS: Hypochromasia 1+; Microcytosis Slight
[2019-12-08 07:23] LABS: Calcium 9.7 MG/DL (8.5-10.1); Osmolality,Calculated 305.7 MOS/KG (273-304)
[2019-12-08] MEDS: ARFORMOTEROL 15 MCG/2 ML NEB RESP TX SCH ×2 (08:57→20:58)
[2019-12-08] MEDS: GABAPENTIN 50 MG/ML 30 ML/BOTTLE PO SCH ×3 (09:06→20:15)
[2019-12-08] MEDS: MONTELUKAST 10 MG TABLET PO SCH (09:07)
[2019-12-08] MEDS: DEXAMETHASONE 4 MG/1 ML VIAL IV SCH (09:07)
[2019-12-08] MEDS: CALCIUM (CARBONATE)/VITAMIN D 600 MG-400 UNIT TABLET PO SCH (09:07)
[2019-12-08] MEDS: METOPROLOL TARTRATE 25 MG TABLET PO SCH ×2 (09:08→20:15)
[2019-12-08] MEDS: PANTOPRAZOLE 40 MG VIAL IV SCH (09:08)
[2019-12-08] MEDS: ENOXAPARIN 60 MG/0.6 ML SYRINGE SUBCUT SCH ×2 (09:08→20:15)
[2019-12-08] MEDS ORDERED: SODIUM POLYSTYRENE SULFATE 15 GM/60 ML BOTTLE PO STA (12:38)
[2019-12-08] MEDS ORDERED: amLODIPine 10 MG TABLET PO SCH (13:30)
[2019-12-08] MEDS: FLUCONAZOLE INJ 400 MG in PREMIX 1 EACH IV SCH (17:55)
[2019-12-08] MEDS: ROCURONIUM 500 MG in SODIUM CHLORIDE 0.9% 500 ML IV PRN (20:15)
[2019-12-08] MEDS: INSULIN GLARGINE 100 UNIT/ML SUBCUT SCH (20:15)
[2019-12-08] MEDS: VANCOMYCIN INJ 2,000 MG in SODIUM CHLORIDE 0.9% 500 ML IV SCH (21:47)
[2019-12-09] MEDS: INSULIN REGULAR 100 UNIT/ML SUBCUT SCH ×4 (00:15→17:20)
[2019-12-09] MEDS: FENTANYL IV PRN ×2 (01:58→14:05)
[2019-12-09] MEDS: DEXTROSE 5% IV PRN ×2 (01:58→14:05)
[2019-12-09] MEDS: MIDAZOLAM 100 MG in SODIUM CHLORIDE 0.9% 80 ML IV PRN ×2 (03:05→18:45)
[2019-12-09 04:34] LABS: Allen Test Positive; Pt O2 Delivery Device Ventilator
[2019-12-09 04:39] LABS: ABG Base Excess 12.7 MMOL/L (-2.5-2.5); ABG HCO3 41.3 MMOL/L (20-26); ABG Oxygen Saturation 97.3 % (95-100); ABG PH 7.327 (7.35-7.45); ABG PO2 106.9 MM HG (80-95); ABG TCO2 43.7 MMOL/L (23-27)
[2019-12-09 04:58] LABS: Calcium 9.6 MG/DL (8.5-10.1); Osmolality,Calculated 301.7 MOS/KG (273-304)
[2019-12-09 04:59] LABS: ABG PCO2 80.6 MM HG (35-48)
[2019-12-09 05:13] LABS: Basophils % 0.3 % (0.0-0.8); Hematocrit 31.8 VOL% (35.7-47.0); Immature Granulocytes % 2.3 %; Immature Granulocytes Absolute 0.33 #; Lymphocytes # 0.5 10*3/uL (1.4-4.0); Lymphocytes % 3.4 % (21.3-54.2); Mean Corpuscular HGB Conc 28.3 GM/DL (32-36); Mean Corpuscular Volume 89.8 FL (87-102); Mean Platelet Volume 11.4 FL (9.6-12.0); Monocytes % 6.6 % (1.7-12.7); NRBC # 0.03 10*3/uL; Neutrophils % 87.4 % (38.7-73.9); Platelet Count 234 T/CUMM (130-400); Red Blood Count 3.54 MC/CUMM (3.8-5.5); Red Cell Distribution Width 15.8 % (9.3-17.3); White Blood Count 14.5 T/CUMM (4-12)
[2019-12-09] MEDS: MEROPENEM 500 MG in SODIUM CHLORIDE 0.9% 100 ML IV SCH ×3 (05:28→17:20)
[2019-12-09 05:54] LABS: Hypochromasia 1+; Lymphocytes 6 % (20-55); Segmented Neutrophils 90 % (50-85); Total Cells Counted 100
[2019-12-09 05:55] LABS: Microcytosis Slight
[2019-12-09] MEDS: MONTELUKAST 10 MG TABLET PO SCH (08:00)
[2019-12-09] MEDS: METOPROLOL TARTRATE 25 MG TABLET PO SCH ×2 (08:00→20:05)
[2019-12-09] MEDS: GABAPENTIN 50 MG/ML 30 ML/BOTTLE PO SCH ×3 (08:00→20:05)
[2019-12-09] MEDS: CALCIUM (CARBONATE)/VITAMIN D 600 MG-400 UNIT TABLET PO SCH (08:00)
[2019-12-09] MEDS: ENOXAPARIN 60 MG/0.6 ML SYRINGE SUBCUT SCH (08:00)
[2019-12-09] MEDS: PANTOPRAZOLE 40 MG VIAL IV SCH (08:00)
[2019-12-09] MEDS ORDERED: FUROSEMIDE 40 MG/4 ML VIAL IV ONE (08:43)
[2019-12-09] MEDS: ARFORMOTEROL 15 MCG/2 ML NEB RESP TX SCH ×2 (10:16→19:05)
[2019-12-09] MEDS: methylPREDNISolone SOD SUC 40 MG/1 ML VIAL IV SCH ×2 (10:24→17:20)
[2019-12-09] MEDS ORDERED: MEROPENEM 500 MG in SODIUM CHLORIDE 0.9% 100 ML IV ONE (11:00)
[2019-12-09] MEDS: FLUCONAZOLE INJ 400 MG in PREMIX 1 EACH IV SCH (17:45)
[2019-12-09] MEDS: INSULIN GLARGINE 100 UNIT/ML SUBCUT SCH (20:05)
[2019-12-09] MEDS: VANCOMYCIN INJ 2,000 MG in SODIUM CHLORIDE 0.9% 500 ML IV SCH (20:35)
[2019-12-10] MEDS: MEROPENEM 500 MG in SODIUM CHLORIDE 0.9% 100 ML IV SCH ×5 (00:12→22:13)
[2019-12-10] MEDS: INSULIN REGULAR 100 UNIT/ML SUBCUT SCH ×4 (00:20→17:34)
[2019-12-10] MEDS: methylPREDNISolone SOD SUC 40 MG/1 ML VIAL IV SCH ×3 (00:20→17:06)
[2019-12-10] MEDS: DEXTROSE 5% IV PRN ×3 (01:24→17:41)
[2019-12-10] MEDS: FENTANYL IV PRN ×3 (01:24→17:41)
[2019-12-10] MEDS: MIDAZOLAM 100 MG in SODIUM CHLORIDE 0.9% 80 ML IV PRN ×2 (04:01→15:49)
[2019-12-10 05:08] LABS: Allen Test Positive; Pt O2 Delivery Device Ventilator
[2019-12-10 05:09] LABS: ABG Base Excess 13.2 MMOL/L (-2.5-2.5); ABG HCO3 39.8 MMOL/L (20-26); ABG Oxygen Saturation 91.8 % (95-100); ABG PCO2 64.3 MM HG (35-48); ABG PH 7.409 (7.35-7.45); ABG PO2 66.6 MM HG (80-95); ABG TCO2 41.7 MMOL/L (23-27)
[2019-12-10] MEDS ORDERED: LORazepam 2 MG/1 ML VIAL ONE (05:11)
[2019-12-10] MEDS ORDERED: VECURONIUM 10 MG VIAL IV ONE (05:15)
[2019-12-10] MEDS ORDERED: ETOMIDATE 20 MG/10 ML VIAL IV ONE (05:15)
[2019-12-10 05:33] LABS: Basophils % 0.1 % (0.0-0.8); Hematocrit 28.6 VOL% (35.7-47.0); Hemoglobin 8.2 GM/DL (12.0-16.0); Immature Granulocytes Absolute 0.28 #; Lymphocytes # 0.4 10*3/uL (1.4-4.0); Lymphocytes % 2.6 % (21.3-54.2); Mean Corpuscular HGB Conc 28.7 GM/DL (32-36); Mean Corpuscular Volume 88.3 FL (87-102); Mean Platelet Volume 11.6 FL (9.6-12.0); NRBC # 0.05 10*3/uL; Neutrophils % 93.3 % (38.7-73.9); Platelet Count 211 T/CUMM (130-400); Red Blood Count 3.24 MC/CUMM (3.8-5.5); Red Cell Distribution Width 15.9 % (9.3-17.3); White Blood Count 13.8 T/CUMM (4-12)
[2019-12-10 05:44] LABS: Calcium 9.5 MG/DL (8.5-10.1); Osmolality,Calculated 294.3 MOS/KG (273-304)
[2019-12-10 06:00] LABS: Hypochromasia 1+; Lymphocytes 5 % (20-55); Nucleated Red Blood Cells 1 (0-5); Ovalocytes Slight; Platelet Estimate Adequate; Segmented Neutrophils 92 % (50-85); Total Cells Counted 100
[2019-12-10 06:01] LABS: Microcytosis Slight
[2019-12-10] MEDS: PANTOPRAZOLE 40 MG VIAL IV SCH (08:48)
[2019-12-10] MEDS ORDERED: FUROSEMIDE 40 MG/4 ML VIAL IV ONE (08:52)
[2019-12-10] MEDS: CALCIUM (CARBONATE)/VITAMIN D 600 MG-400 UNIT TABLET PO SCH (09:00)
[2019-12-10] MEDS: METOPROLOL TARTRATE 25 MG TABLET PO SCH ×2 (09:00→21:42)
[2019-12-10] MEDS: MONTELUKAST 10 MG TABLET PO SCH (09:00)
[2019-12-10] MEDS: GABAPENTIN 50 MG/ML 30 ML/BOTTLE PO SCH ×3 (09:01→21:42)
[2019-12-10] MEDS: ARFORMOTEROL 15 MCG/2 ML NEB RESP TX SCH ×2 (10:01→19:32)
[2019-12-10] MEDS: FLUCONAZOLE INJ 400 MG in PREMIX 1 EACH IV SCH (19:06)
[2019-12-10] MEDS: INSULIN GLARGINE 100 UNIT/ML SUBCUT SCH (21:42)
[2019-12-10] MEDS: FUROSEMIDE 40 MG/4 ML VIAL IV SCH (21:48)
[2019-12-10] MEDS: VANCOMYCIN INJ 2,000 MG in SODIUM CHLORIDE 0.9% 500 ML IV SCH (21:49)
[2019-12-11] MEDS: INSULIN REGULAR 100 UNIT/ML SUBCUT SCH ×4 (00:08→17:31)
[2019-12-11] MEDS: MIDAZOLAM 100 MG in SODIUM CHLORIDE 0.9% 80 ML IV PRN ×3 (01:00→20:38)
[2019-12-11] MEDS: DEXTROSE 5% IV PRN ×3 (01:01→16:28)
[2019-12-11] MEDS: FENTANYL IV PRN ×3 (01:01→16:28)
[2019-12-11] MEDS: methylPREDNISolone SOD SUC 40 MG/1 ML VIAL IV SCH ×3 (01:56→17:30)
[2019-12-11 03:55] LABS: Basophils % 0.1 % (0.0-0.8); Hematocrit 28.5 VOL% (35.7-47.0); Hemoglobin 8.3 GM/DL (12.0-16.0); Immature Granulocytes % 2.8 %; Immature Granulocytes Absolute 0.47 #; Lymphocytes # 0.4 10*3/uL (1.4-4.0); Lymphocytes % 2.5 % (21.3-54.2); Mean Corpuscular HGB Conc 29.1 GM/DL (32-36); Mean Corpuscular Volume 87.7 FL (87-102); Monocytes % 3.2 % (1.7-12.7); NRBC # 0.12 10*3/uL; Neutrophils % 91.4 % (38.7-73.9); Platelet Count 213 T/CUMM (130-400); Red Blood Count 3.25 MC/CUMM (3.8-5.5)
[2019-12-11 04:03] LABS: ABG HCO3 36.8 MMOL/L (20-26); ABG PCO2 67.8 MM HG (35-48); ABG PH 7.384 (7.35-7.45); ABG PO2 73.5 MM HG (80-95); ABG TCO2 37.7 MMOL/L (23-27)
[2019-12-11 04:20] LABS: Calcium 9.4 MG/DL (8.5-10.1)
[2019-12-11 04:50] LABS: Band Neutrophils 1 % (0-10); Lymphocytes 4 % (20-55); Myelocytes 1 %; Segmented Neutrophils 88 % (50-85); Total Cells Counted 100
[2019-12-11 04:51] LABS: Anisocytosis 1+; Hypochromasia 1+; Microcytosis 1+; Polychromasia Slight; Smudge Cells Few
[2019-12-11 04:52] LABS: Platelet Estimate Normal
[2019-12-11 05:12] LABS: Osmolality,Calculated 291.7 MOS/KG (273-304)
[2019-12-11] MEDS: MEROPENEM 500 MG in SODIUM CHLORIDE 0.9% 100 ML IV SCH ×4 (06:20→22:56)
[2019-12-11] MEDS: PANTOPRAZOLE 40 MG VIAL IV SCH (08:23)
[2019-12-11] MEDS: FUROSEMIDE 40 MG/4 ML VIAL IV SCH ×2 (08:23→20:37)
[2019-12-11] MEDS: METOPROLOL TARTRATE 25 MG TABLET PO SCH ×2 (08:24→20:37)
[2019-12-11] MEDS: GABAPENTIN 50 MG/ML 30 ML/BOTTLE PO SCH ×3 (08:24→20:37)
[2019-12-11] MEDS: CALCIUM (CARBONATE)/VITAMIN D 600 MG-400 UNIT TABLET PO SCH (08:24)
[2019-12-11] MEDS: MONTELUKAST 10 MG TABLET PO SCH (08:24)
[2019-12-11] MEDS: ARFORMOTEROL 15 MCG/2 ML NEB RESP TX SCH (10:02)
[2019-12-11] MEDS: AZITHROMYCIN INJ 250 MG in SODIUM CHLORIDE 0.9% 250 ML IV SCH (11:33)
[2019-12-11] MEDS: FENOFIBRATE 145 MG TABLET PO SCH (11:47)
[2019-12-11] MEDS: INSULIN LISPRO 100 UNIT/ML SUBCUT SCH (17:31)
[2019-12-11] MEDS: INSULIN GLARGINE 100 UNIT/ML SUBCUT SCH (20:36)
[2019-12-11] MEDS: VANCOMYCIN INJ 2,000 MG in SODIUM CHLORIDE 0.9% 500 ML IV SCH (20:37)
[2019-12-12] MEDS: INSULIN LISPRO 100 UNIT/ML SUBCUT SCH ×4 (00:52→17:18)
[2019-12-12] MEDS: INSULIN REGULAR 100 UNIT/ML SUBCUT SCH ×4 (00:52→17:18)
[2019-12-12] MEDS: FENTANYL IV PRN ×2 (00:53→17:40)
[2019-12-12] MEDS: DEXTROSE 5% IV PRN ×2 (00:53→17:40)
[2019-12-12] MEDS: methylPREDNISolone SOD SUC 40 MG/1 ML VIAL IV SCH ×3 (01:04→17:39)
[2019-12-12 02:53] LABS: ABG Base Excess 14.9 MMOL/L (-2.5-2.5); ABG HCO3 41.6 MMOL/L (20-26); ABG Oxygen Saturation 94.5 % (95-100); ABG PCO2 66.7 MM HG (35-48); ABG PH 7.413 (7.35-7.45); ABG PO2 76.6 MM HG (80-95); ABG TCO2 43.7 MMOL/L (23-27)
[2019-12-12 03:37] LABS: Basophils % 0.2 % (0.0-0.8); Hematocrit 29.9 VOL% (35.7-47.0); Immature Granulocytes % 2.3 %; Immature Granulocytes Absolute 0.39 #; Lymphocytes # 0.4 10*3/uL (1.4-4.0); Lymphocytes % 2.3 % (21.3-54.2); Mean Corpuscular HGB Conc 30.1 GM/DL (32-36); Mean Corpuscular Volume 85.9 FL (87-102); Mean Platelet Volume 11.1 FL (9.6-12.0); Monocytes % 3.4 % (1.7-12.7); NRBC # 0.15 10*3/uL; Neutrophils % 91.8 % (38.7-73.9); Platelet Count 211 T/CUMM (130-400); Red Blood Count 3.48 MC/CUMM (3.8-5.5); Red Cell Distribution Width 16.4 % (9.3-17.3); White Blood Count 17.2 T/CUMM (4-12)
[2019-12-12 04:22] LABS: Lymphocytes 3 % (20-55); Segmented Neutrophils 94 % (50-85); Total Cells Counted 100
[2019-12-12 04:23] LABS: Anisocytosis 1+; Hypochromasia 1+; Ovalocytes 1+; Platelet Estimate Normal
[2019-12-12 04:55] LABS: Ferritin 242.2 ng/ml (8-252)
[2019-12-12] MEDS: MIDAZOLAM 100 MG in SODIUM CHLORIDE 0.9% 80 ML IV PRN ×2 (07:50→18:35)
[2019-12-12] MEDS: PANTOPRAZOLE 40 MG VIAL IV SCH (09:18)
[2019-12-12] MEDS: FENOFIBRATE 145 MG TABLET PO SCH (09:18)
[2019-12-12] MEDS: CALCIUM (CARBONATE)/VITAMIN D 600 MG-400 UNIT TABLET PO SCH (09:18)
[2019-12-12] MEDS: MONTELUKAST 10 MG TABLET PO SCH (09:18)
[2019-12-12] MEDS: METOPROLOL TARTRATE 25 MG TABLET PO SCH ×2 (09:18→20:40)
[2019-12-12] MEDS: FUROSEMIDE 40 MG/4 ML VIAL IV SCH ×2 (09:19→20:40)
[2019-12-12] MEDS: GABAPENTIN 50 MG/ML 30 ML/BOTTLE PO SCH ×3 (09:20→20:40)
[2019-12-12] MEDS: AZITHROMYCIN INJ 250 MG in SODIUM CHLORIDE 0.9% 250 ML IV SCH (09:28)
[2019-12-12 14:26] LABS: Calcium 9.3 MG/DL (8.5-10.1); Osmolality,Calculated 285.5 MOS/KG (273-304)
[2019-12-12] MEDS: VANCOMYCIN INJ 2,000 MG in SODIUM CHLORIDE 0.9% 500 ML IV SCH (21:00)
[2019-12-12] MEDS: INSULIN GLARGINE 100 UNIT/ML SUBCUT SCH (21:31)
[2019-12-13] MEDS: methylPREDNISolone SOD SUC 40 MG/1 ML VIAL IV SCH ×3 (00:55→16:30)
[2019-12-13] MEDS: INSULIN LISPRO 100 UNIT/ML SUBCUT SCH ×3 (01:16→11:36)
[2019-12-13] MEDS: INSULIN REGULAR 100 UNIT/ML SUBCUT SCH ×4 (01:17→17:23)
[2019-12-13] MEDS: FENTANYL IV PRN ×2 (01:20→13:45)
[2019-12-13] MEDS: DEXTROSE 5% IV PRN ×2 (01:20→13:45)
[2019-12-13] MEDS: MIDAZOLAM 100 MG in SODIUM CHLORIDE 0.9% 80 ML IV PRN ×2 (04:00→18:31)
[2019-12-13 04:14] LABS: ABG Base Excess 15.2 MMOL/L (-2.5-2.5); ABG Oxygen Saturation 90.5 % (95-100); ABG PCO2 64.5 MM HG (35-48); ABG PH 7.432 (7.35-7.45); ABG PO2 62.7 MM HG (80-95); Allen Test Positive; Pt O2 Delivery Device Ventilator
[2019-12-13 04:56] LABS: Basophils % 0.1 % (0.0-0.8); Hematocrit 30.5 VOL% (35.7-47.0); Immature Granulocytes % 2.7 %; Immature Granulocytes Absolute 0.44 #; Lymphocytes # 0.3 10*3/uL (1.4-4.0); Lymphocytes % 2.1 % (21.3-54.2); Mean Corpuscular HGB Conc 29.5 GM/DL (32-36); Mean Corpuscular Volume 86.6 FL (87-102); Mean Platelet Volume 10.5 FL (9.6-12.0); Monocytes % 3.2 % (1.7-12.7); NRBC # 0.13 10*3/uL; Neutrophils % 91.9 % (38.7-73.9); Platelet Count 201 T/CUMM (130-400); Red Blood Count 3.52 MC/CUMM (3.8-5.5); Red Cell Distribution Width 16.9 % (9.3-17.3); White Blood Count 16.4 T/CUMM (4-12)
[2019-12-13 05:14] LABS: Calcium 9.2 MG/DL (8.5-10.1); Osmolality,Calculated 281.8 MOS/KG (273-304)
[2019-12-13 05:17] LABS: Ferritin 311.9 ng/ml (8-252)
[2019-12-13 05:44] LABS: Anisocytosis 1+; Lymphocytes 1 % (20-55); Macrocytosis 1+; Metamyelocytes 1 %; Nucleated Red Blood Cells 1 (0-5); Platelet Estimate Normal; Polychromasia Few; Segmented Neutrophils 96 % (50-85); Total Cells Counted 100
[2019-12-13] MEDS: MONTELUKAST 10 MG TABLET PO SCH (08:28)
[2019-12-13] MEDS: METOPROLOL TARTRATE 25 MG TABLET PO SCH ×2 (08:28→21:16)
[2019-12-13] MEDS: CALCIUM (CARBONATE)/VITAMIN D 600 MG-400 UNIT TABLET PO SCH (08:28)
[2019-12-13] MEDS: PANTOPRAZOLE 40 MG VIAL IV SCH (08:29)
[2019-12-13] MEDS: FENOFIBRATE 145 MG TABLET PO SCH (08:29)
[2019-12-13] MEDS: FUROSEMIDE 40 MG/4 ML VIAL IV SCH (08:29)
[2019-12-13] MEDS: GABAPENTIN 50 MG/ML 30 ML/BOTTLE PO SCH ×3 (08:30→21:17)
[2019-12-13] MEDS: AZITHROMYCIN INJ 250 MG in SODIUM CHLORIDE 0.9% 250 ML IV SCH (09:11)
[2019-12-13] MEDS: INSULIN GLARGINE 100 UNIT/ML SUBCUT SCH (21:16)
[2019-12-13] MEDS: ENOXAPARIN 40 MG/0.4 ML SYRINGE SUBCUT SCH (21:17)
[2019-12-13] MEDS: VANCOMYCIN INJ 2,000 MG in SODIUM CHLORIDE 0.9% 500 ML IV SCH (21:27)
[2019-12-14] MEDS: INSULIN REGULAR 100 UNIT/ML SUBCUT SCH ×5 (00:28→18:10)
[2019-12-14] MEDS: methylPREDNISolone SOD SUC 40 MG/1 ML VIAL IV SCH ×3 (02:58→17:18)
[2019-12-14 04:52] LABS: ABG Base Excess 13.9 MMOL/L (-2.5-2.5); ABG HCO3 37.6 MMOL/L (20-26); ABG Oxygen Saturation 90.7 % (95-100); ABG PCO2 61.5 MM HG (35-48); ABG PH 7.429 (7.35-7.45); ABG TCO2 37.4 MMOL/L (23-27); Allen Test Positive; Pt O2 Delivery Device Ventilator
[2019-12-14 05:19] LABS: Basophils # 0.1 10*3/uL (0.0-0.2); Basophils % 0.2 % (0.0-0.8); Hematocrit 33.2 VOL% (35.7-47.0); Hemoglobin 9.9 GM/DL (12.0-16.0); Immature Granulocytes % 3.9 %; Immature Granulocytes Absolute 0.99 #; Lymphocytes # 0.5 10*3/uL (1.4-4.0); Lymphocytes % 1.9 % (21.3-54.2); Mean Corpuscular HGB Conc 29.8 GM/DL (32-36); Mean Corpuscular Volume 86.7 FL (87-102); Mean Platelet Volume 10.8 FL (9.6-12.0); Monocytes % 4.2 % (1.7-12.7); NRBC # 0.26 10*3/uL; Neutrophils % 89.8 % (38.7-73.9); Platelet Count 269 T/CUMM (130-400); Red Blood Count 3.83 MC/CUMM (3.8-5.5); Red Cell Distribution Width 17.5 % (9.3-17.3); White Blood Count 25.7 T/CUMM (4-12)
[2019-12-14 05:36] LABS: Calcium 9.4 MG/DL (8.5-10.1); Osmolality,Calculated 281.8 MOS/KG (273-304)
[2019-12-14 06:08] LABS: Ferritin 441.3 ng/ml (8-252)
[2019-12-14] MEDS: DEXTROSE 5% IV PRN ×2 (06:15→17:01)
[2019-12-14] MEDS: FENTANYL IV PRN ×2 (06:15→17:01)
[2019-12-14 06:28] LABS: Band Neutrophils 2 % (0-10); Lymphocytes 3 % (20-55); Myelocytes 1 %; Segmented Neutrophils 92 % (50-85); Total Cells Counted 100
[2019-12-14 06:29] LABS: Anisocytosis 1+; Platelet Estimate Normal; Polychromasia Slight; Tear Drop Cells Few
[2019-12-14] MEDS: MONTELUKAST 10 MG TABLET PO SCH (08:30)
[2019-12-14] MEDS: CALCIUM (CARBONATE)/VITAMIN D 600 MG-400 UNIT TABLET PO SCH (08:30)
[2019-12-14] MEDS: FENOFIBRATE 145 MG TABLET PO SCH (08:30)
[2019-12-14] MEDS: METOPROLOL TARTRATE 25 MG TABLET PO SCH ×2 (08:30→20:44)
[2019-12-14] MEDS: GABAPENTIN 50 MG/ML 30 ML/BOTTLE PO SCH ×3 (08:31→20:45)
[2019-12-14] MEDS: PANTOPRAZOLE 40 MG VIAL IV SCH (08:32)
[2019-12-14] MEDS ORDERED: FUROSEMIDE 40 MG/4 ML VIAL IV ONE (09:12)
[2019-12-14] MEDS: AZITHROMYCIN INJ 250 MG in SODIUM CHLORIDE 0.9% 250 ML IV SCH (09:54)
[2019-12-14] MEDS: MIDAZOLAM 100 MG in SODIUM CHLORIDE 0.9% 80 ML IV PRN (16:57)
[2019-12-14] MEDS: ENOXAPARIN 40 MG/0.4 ML SYRINGE SUBCUT SCH (20:44)
[2019-12-14] MEDS: INSULIN GLARGINE 100 UNIT/ML SUBCUT SCH (20:45)
[2019-12-14] MEDS ORDERED: VANCOMYCIN INJ 2,000 MG in SODIUM CHLORIDE 0.9% 500 ML IV SCH (21:00)
[2019-12-15] MEDS: DEXTROSE 5% IV PRN ×4 (00:15→21:20)
[2019-12-15] MEDS: FENTANYL IV PRN ×4 (00:15→21:20)
[2019-12-15] MEDS: INSULIN REGULAR 100 UNIT/ML SUBCUT SCH ×4 (00:34→18:18)
[2019-12-15] MEDS: methylPREDNISolone SOD SUC 40 MG/1 ML VIAL IV SCH ×3 (00:46→16:42)
[2019-12-15] MEDS: MIDAZOLAM 100 MG in SODIUM CHLORIDE 0.9% 80 ML IV PRN ×3 (02:25→18:32)
[2019-12-15 04:06] LABS: Basophils % 0.1 % (0.0-0.8); Eosinophils % 0.1 % (0.00-10.9); Hematocrit 27.9 VOL% (35.7-47.0); Hemoglobin 8.2 GM/DL (12.0-16.0); Immature Granulocytes % 2.4 %; Lymphocytes # 0.2 10*3/uL (1.4-4.0); Lymphocytes % 1.4 % (21.3-54.2); Mean Corpuscular HGB Conc 29.4 GM/DL (32-36); Mean Corpuscular Volume 87.5 FL (87-102); Mean Platelet Volume 10.6 FL (9.6-12.0); Monocytes % 2.7 % (1.7-12.7); NRBC # 0.09 10*3/uL; Neutrophils % 93.3 % (38.7-73.9); Platelet Count 176 T/CUMM (130-400); Red Blood Count 3.19 MC/CUMM (3.8-5.5); Red Cell Distribution Width 17.6 % (9.3-17.3); White Blood Count 16.4 T/CUMM (4-12)
[2019-12-15 04:16] LABS: Osmolality,Calculated 283.7 MOS/KG (273-304)
[2019-12-15 04:24] LABS: Ferritin 500.4 ng/ml (8-252)
[2019-12-15 04:35] LABS: ABG HCO3 39.6 MMOL/L (20-26); ABG Oxygen Saturation 83.2 % (95-100); ABG PCO2 64.7 MM HG (35-48); ABG PH 7.405 (7.35-7.45); ABG PO2 51.6 MM HG (80-95); ABG TCO2 41.6 MMOL/L (23-27); Allen Test Positive; Pt O2 Delivery Device Ventilator
[2019-12-15 04:51] LABS: Hypochromasia 1+; Nucleated Red Blood Cells 1 (0-5); Ovalocytes Slight; Platelet Estimate Adequate; Segmented Neutrophils 98 % (50-85); Total Cells Counted 100
[2019-12-15] MEDS: METOPROLOL TARTRATE 25 MG TABLET PO SCH ×2 (08:22→20:27)
[2019-12-15] MEDS: FENOFIBRATE 145 MG TABLET PO SCH (08:22)
[2019-12-15] MEDS: CALCIUM (CARBONATE)/VITAMIN D 600 MG-400 UNIT TABLET PO SCH (08:22)
[2019-12-15] MEDS: MONTELUKAST 10 MG TABLET PO SCH (08:22)
[2019-12-15] MEDS: GABAPENTIN 50 MG/ML 30 ML/BOTTLE PO SCH ×3 (08:23→20:28)
[2019-12-15] MEDS: PANTOPRAZOLE 40 MG VIAL IV SCH (08:23)
[2019-12-15] MEDS: AZITHROMYCIN INJ 250 MG in SODIUM CHLORIDE 0.9% 250 ML IV SCH (09:43)
[2019-12-15] MEDS: ROCURONIUM 500 MG in SODIUM CHLORIDE 0.9% 500 ML IV PRN ×2 (12:21→18:21)
[2019-12-15] MEDS ORDERED: NOREPINEPHRINE 8 MG in SODIUM CHLORIDE 0.9% 242 ML IV PRN (17:00)
[2019-12-15] MEDS: INSULIN GLARGINE 100 UNIT/ML SUBCUT SCH (20:27)
[2019-12-15] MEDS: ENOXAPARIN 40 MG/0.4 ML SYRINGE SUBCUT SCH (20:27)
[2019-12-16] MEDS: ROCURONIUM 500 MG in SODIUM CHLORIDE 0.9% 500 ML IV PRN ×2 (00:14→10:02)
[2019-12-16] MEDS: methylPREDNISolone SOD SUC 40 MG/1 ML VIAL IV SCH ×3 (00:33→16:36)
[2019-12-16] MEDS: INSULIN REGULAR 100 UNIT/ML SUBCUT SCH ×4 (00:33→18:25)
[2019-12-16] MEDS: MIDAZOLAM 100 MG in SODIUM CHLORIDE 0.9% 80 ML IV PRN ×3 (01:20→22:35)
[2019-12-16] MEDS: DEXTROSE 5% IV PRN ×3 (03:15→21:28)
[2019-12-16] MEDS: FENTANYL IV PRN ×3 (03:15→21:28)
[2019-12-16 04:11] LABS: ABG Base Excess 10.8 MMOL/L (-2.5-2.5); ABG HCO3 34.4 MMOL/L (20-26); ABG Oxygen Saturation 90.4 % (95-100); ABG PH 7.327 (7.35-7.45); ABG PO2 64.8 MM HG (80-95); ABG TCO2 36.7 MMOL/L (23-27); Allen Test Positive; Pt O2 Delivery Device Ventilator
[2019-12-16 04:20] LABS: ABG PCO2 74.8 MM HG (35-48)
[2019-12-16 05:48] LABS: Calcium 8.4 MG/DL (8.5-10.1)
[2019-12-16 05:59] LABS: Basophils % 0.2 % (0.0-0.8); Hematocrit 29.6 VOL% (35.7-47.0); Hemoglobin 8.6 GM/DL (12.0-16.0); Immature Granulocytes % 2.1 %; Lymphocytes # 0.2 10*3/uL (1.4-4.0); Mean Corpuscular HGB Conc 29.1 GM/DL (32-36); Mean Corpuscular Volume 88.1 FL (87-102); Mean Platelet Volume 11.3 FL (9.6-12.0); Monocytes % 2.4 % (1.7-12.7); Neutrophils % 94.3 % (38.7-73.9); Platelet Count 171 T/CUMM (130-400); Red Blood Count 3.36 MC/CUMM (3.8-5.5); Red Cell Distribution Width 17.5 % (9.3-17.3); White Blood Count 18.9 T/CUMM (4-12)
[2019-12-16 06:27] LABS: Osmolality,Calculated 282.7 MOS/KG (273-304)
[2019-12-16 07:04] LABS: Hypochromasia 1+; Lymphocytes 2 % (20-55); Microcytosis 1+; Platelet Estimate Adequate; Segmented Neutrophils 97 % (50-85); Total Cells Counted 100
[2019-12-16] MEDS: METOPROLOL TARTRATE 25 MG TABLET PO SCH ×2 (08:04→20:30)
[2019-12-16] MEDS: FENOFIBRATE 145 MG TABLET PO SCH (08:04)
[2019-12-16] MEDS: CALCIUM (CARBONATE)/VITAMIN D 600 MG-400 UNIT TABLET PO SCH (08:05)
[2019-12-16] MEDS: MONTELUKAST 10 MG TABLET PO SCH (08:05)
[2019-12-16] MEDS: PANTOPRAZOLE 40 MG VIAL IV SCH (08:06)
[2019-12-16] MEDS: GABAPENTIN 50 MG/ML 30 ML/BOTTLE PO SCH ×3 (08:07→20:30)
[2019-12-16] MEDS ORDERED: FUROSEMIDE 40 MG/4 ML VIAL IV ONE (08:54)
[2019-12-16] MEDS: AZITHROMYCIN INJ 500 MG in SODIUM CHLORIDE 0.9% 250 ML IV SCH (16:35)
[2019-12-16] MEDS: INSULIN GLARGINE 100 UNIT/ML SUBCUT SCH (20:30)
[2019-12-16] MEDS: ENOXAPARIN 40 MG/0.4 ML SYRINGE SUBCUT SCH (20:30)
[2019-12-17] MEDS: methylPREDNISolone SOD SUC 40 MG/1 ML VIAL IV SCH ×3 (00:15→16:38)
[2019-12-17] MEDS: INSULIN REGULAR 100 UNIT/ML SUBCUT SCH ×4 (00:34→18:00)
[2019-12-17 03:18] LABS: ABG Base Excess 12.5 MMOL/L (-2.5-2.5); ABG HCO3 41.1 MMOL/L (20-26); ABG Oxygen Saturation 88.3 % (95-100); ABG PH 7.317 (7.35-7.45); ABG PO2 60.7 MM HG (80-95); ABG TCO2 43.6 MMOL/L (23-27); Allen Test Positive; Pt O2 Delivery Device Ventilator
[2019-12-17 03:21] LABS: ABG PCO2 82.1 MM HG (35-48)
[2019-12-17] MEDS: FENTANYL IV PRN ×4 (03:30→23:50)
[2019-12-17] MEDS: DEXTROSE 5% IV PRN ×4 (03:30→23:50)
[2019-12-17 03:44] LABS: Basophils % 0.1 % (0.0-0.8); Hematocrit 28.1 VOL% (35.7-47.0); Hemoglobin 8.2 GM/DL (12.0-16.0); Immature Granulocytes % 2.1 %; Immature Granulocytes Absolute 0.39 #; Lymphocytes # 0.2 10*3/uL (1.4-4.0); Lymphocytes % 1.2 % (21.3-54.2); Mean Corpuscular HGB Conc 29.2 GM/DL (32-36); Mean Corpuscular Volume 90.4 FL (87-102); Monocytes % 2.9 % (1.7-12.7); Neutrophils % 93.7 % (38.7-73.9); Platelet Count 141 T/CUMM (130-400); Red Blood Count 3.11 MC/CUMM (3.8-5.5); Red Cell Distribution Width 17.6 % (9.3-17.3); White Blood Count 18.8 T/CUMM (4-12)
[2019-12-17] MEDS: ROCURONIUM 500 MG in SODIUM CHLORIDE 0.9% 500 ML IV PRN ×2 (03:57→20:30)
[2019-12-17 04:01] LABS: Calcium 8.6 MG/DL (8.5-10.1); Osmolality,Calculated 283.5 MOS/KG (273-304)
[2019-12-17 04:26] LABS: Hypochromasia 1+; Microcytosis Slight; Nucleated Red Blood Cells 2 (0-5); Platelet Estimate Normal; Segmented Neutrophils 95 % (50-85); Total Cells Counted 100
[2019-12-17] MEDS: MIDAZOLAM 100 MG in SODIUM CHLORIDE 0.9% 80 ML IV PRN ×3 (06:05→23:51)
[2019-12-17] MEDS: CALCIUM (CARBONATE)/VITAMIN D 600 MG-400 UNIT TABLET PO SCH (08:04)
[2019-12-17] MEDS: GABAPENTIN 50 MG/ML 30 ML/BOTTLE PO SCH ×3 (08:05→20:30)
[2019-12-17] MEDS: MONTELUKAST 10 MG TABLET PO SCH (08:05)
[2019-12-17] MEDS: FENOFIBRATE 145 MG TABLET PO SCH (08:05)
[2019-12-17] MEDS: PANTOPRAZOLE 40 MG VIAL IV SCH (08:05)
[2019-12-17] MEDS: METOPROLOL TARTRATE 25 MG TABLET PO SCH ×2 (08:40→20:30)
[2019-12-17] MEDS: AZITHROMYCIN INJ 500 MG in SODIUM CHLORIDE 0.9% 250 ML IV SCH (16:09)
[2019-12-17] MEDS: ENOXAPARIN 40 MG/0.4 ML SYRINGE SUBCUT SCH (20:30)
[2019-12-17] MEDS: INSULIN GLARGINE 100 UNIT/ML SUBCUT SCH (20:30)
[2019-12-18] MEDS: INSULIN REGULAR 100 UNIT/ML SUBCUT SCH ×4 (00:18→17:39)
[2019-12-18] MEDS: methylPREDNISolone SOD SUC 40 MG/1 ML VIAL IV SCH ×3 (00:32→16:42)
[2019-12-18 05:00] LABS: ABG Base Excess 13.6 MMOL/L (-2.5-2.5); ABG HCO3 41.5 MMOL/L (20-26); ABG Oxygen Saturation 94.7 % (95-100); ABG PH 7.332 (7.35-7.45); ABG PO2 79.5 MM HG (80-95); Allen Test Positive; Pt O2 Delivery Device Ventilator
[2019-12-18 05:04] LABS: ABG PCO2 80.2 MM HG (35-48)
[2019-12-18] MEDS: MIDAZOLAM 100 MG in SODIUM CHLORIDE 0.9% 80 ML IV PRN ×3 (05:57→22:38)
[2019-12-18] MEDS: DEXTROSE 5% IV PRN ×3 (06:40→20:39)
[2019-12-18] MEDS: FENTANYL IV PRN ×3 (06:40→20:39)
[2019-12-18 07:49] LABS: Red Blood Count 3.15 MC/CUMM (3.8-5.5); White Blood Count 18.7 T/CUMM (4-12)
[2019-12-18 07:52] LABS: Basophils % 0.1 % (0.0-0.8); Eosinophils % 0.1 % (0.00-10.9); Hematocrit 28.2 VOL% (35.7-47.0); Hemoglobin 8.2 GM/DL (12.0-16.0); Immature Granulocytes % 2.5 %; Immature Granulocytes Absolute 0.46 #; Lymphocytes # 0.3 10*3/uL (1.4-4.0); Lymphocytes % 1.4 % (21.3-54.2); Mean Corpuscular HGB Conc 29.1 GM/DL (32-36); Mean Corpuscular Volume 89.5 FL (87-102); Mean Platelet Volume 11.1 FL (9.6-12.0); Monocytes % 3.5 % (1.7-12.7); NRBC # 0.17 10*3/uL; Neutrophils % 92.4 % (38.7-73.9); Platelet Count 142 T/CUMM (130-400); Red Cell Distribution Width 17.9 % (9.3-17.3)
[2019-12-18 08:01] LABS: Calcium 8.9 MG/DL (8.5-10.1); Osmolality,Calculated 278.7 MOS/KG (273-304)
[2019-12-18 08:08] LABS: Hypochromasia 1+; Lymphocytes 5 % (20-55); Microcytosis 1+; Platelet Estimate Adequate; Segmented Neutrophils 93 % (50-85); Total Cells Counted 100
[2019-12-18] MEDS: METOPROLOL TARTRATE 25 MG TABLET PO SCH ×2 (08:27→20:40)
[2019-12-18] MEDS: MONTELUKAST 10 MG TABLET PO SCH (08:27)
[2019-12-18] MEDS: FENOFIBRATE 145 MG TABLET PO SCH (08:27)
[2019-12-18] MEDS: CALCIUM (CARBONATE)/VITAMIN D 600 MG-400 UNIT TABLET PO SCH (08:27)
[2019-12-18] MEDS: PANTOPRAZOLE 40 MG VIAL IV SCH (08:28)
[2019-12-18] MEDS: GABAPENTIN 50 MG/ML 30 ML/BOTTLE PO SCH ×3 (08:29→20:40)
[2019-12-18] MEDS: ROCURONIUM 500 MG in SODIUM CHLORIDE 0.9% 500 ML IV PRN (14:01)
[2019-12-18] MEDS: AZITHROMYCIN INJ 500 MG in SODIUM CHLORIDE 0.9% 250 ML IV SCH (16:27)
[2019-12-18] MEDS: ENOXAPARIN 40 MG/0.4 ML SYRINGE SUBCUT SCH (20:40)
[2019-12-18] MEDS: INSULIN GLARGINE 100 UNIT/ML SUBCUT SCH (20:40)
[2019-12-19] MEDS: INSULIN REGULAR 100 UNIT/ML SUBCUT SCH ×4 (00:47→19:00)
[2019-12-19] MEDS: methylPREDNISolone SOD SUC 40 MG/1 ML VIAL IV SCH ×3 (00:48→17:25)
[2019-12-19] MEDS: DEXTROSE 5% IV PRN ×3 (03:20→22:39)
[2019-12-19] MEDS: FENTANYL IV PRN ×3 (03:20→22:39)
[2019-12-19 04:04] LABS: Basophils % 0.2 % (0.0-0.8); Hematocrit 28.8 VOL% (35.7-47.0); Hemoglobin 8.3 GM/DL (12.0-16.0); Immature Granulocytes % 2.5 %; Lymphocytes # 0.4 10*3/uL (1.4-4.0); Lymphocytes % 1.5 % (21.3-54.2); Mean Corpuscular HGB Conc 28.8 GM/DL (32-36); Mean Corpuscular Volume 90.3 FL (87-102); Mean Platelet Volume 10.8 FL (9.6-12.0); Monocytes % 3.3 % (1.7-12.7); NRBC # 0.24 10*3/uL; Neutrophils % 92.5 % (38.7-73.9); Platelet Count 156 T/CUMM (130-400); Red Blood Count 3.19 MC/CUMM (3.8-5.5); Red Cell Distribution Width 18.5 % (9.3-17.3); White Blood Count 23.9 T/CUMM (4-12)
[2019-12-19 04:11] LABS: Calcium 8.9 MG/DL (8.5-10.1); Osmolality,Calculated 278.7 MOS/KG (273-304)
[2019-12-19 04:14] LABS: Band Neutrophils 1 % (0-10); Hypochromasia 1+; Lymphocytes 1 % (20-55); Nucleated Red Blood Cells 1 (0-5); Platelet Estimate Adequate; Segmented Neutrophils 96 % (50-85); Total Cells Counted 100
[2019-12-19 04:15] LABS: Microcytosis Slight
[2019-12-19 04:32] LABS: ABG Base Excess 12.3 MMOL/L (-2.5-2.5); ABG HCO3 40.7 MMOL/L (20-26); ABG Oxygen Saturation 86.9 % (95-100); ABG PH 7.309 (7.35-7.45); ABG PO2 57.4 MM HG (80-95); ABG TCO2 43.3 MMOL/L (23-27); Allen Test Positive; Pt O2 Delivery Device Ventilator
[2019-12-19 04:34] LABS: ABG PCO2 82.9 MM HG (35-48)
[2019-12-19] MEDS: ROCURONIUM 500 MG in SODIUM CHLORIDE 0.9% 500 ML IV PRN (06:49)
[2019-12-19] MEDS: MIDAZOLAM 100 MG in SODIUM CHLORIDE 0.9% 80 ML IV PRN ×2 (06:49→15:55)
[2019-12-19] MEDS: CALCIUM (CARBONATE)/VITAMIN D 600 MG-400 UNIT TABLET PO SCH (08:13)
[2019-12-19] MEDS: METOPROLOL TARTRATE 25 MG TABLET PO SCH ×2 (08:14→21:12)
[2019-12-19] MEDS: MONTELUKAST 10 MG TABLET PO SCH (08:14)
[2019-12-19] MEDS: FENOFIBRATE 145 MG TABLET PO SCH (08:14)
[2019-12-19] MEDS: PANTOPRAZOLE 40 MG VIAL IV SCH (08:15)
[2019-12-19] MEDS: GABAPENTIN 50 MG/ML 30 ML/BOTTLE PO SCH ×3 (08:16→21:12)
[2019-12-19 14:06] LABS: ABG Base Excess 12.2 MMOL/L (-2.5-2.5); ABG HCO3 35.7 MMOL/L (20-26); ABG Oxygen Saturation 78.7 % (95-100); ABG PH 7.324 (7.35-7.45); ABG PO2 46.1 MM HG (80-95); ABG TCO2 38.4 MMOL/L (23-27)
[2019-12-19 14:11] LABS: ABG PCO2 78.9 MM HG (35-48)
[2019-12-19] MEDS: MENTHOL/ZINC OXIDE OINT 71 GM JAR TOP SCH ×2 (14:30→21:12)
[2019-12-19] MEDS ORDERED: POTASSIUM CHLORIDE RIDER 10 MEQ in PREMIX 1 EACH IV ONE (14:48)
[2019-12-19] MEDS ORDERED: FUROSEMIDE 40 MG/4 ML VIAL IV SCH (16:00)
[2019-12-19] MEDS: AZITHROMYCIN INJ 500 MG in SODIUM CHLORIDE 0.9% 250 ML IV SCH ×2 (17:26→23:24)
[2019-12-19] MEDS: ENOXAPARIN 40 MG/0.4 ML SYRINGE SUBCUT SCH (21:12)
[2019-12-19] MEDS: INSULIN GLARGINE 100 UNIT/ML SUBCUT SCH (21:12)
[2019-12-20] MEDS: INSULIN REGULAR 100 UNIT/ML SUBCUT SCH (00:31)
[2019-12-20 00:43] VITALS: BP 87/60
[2019-12-20] MEDS: MIDAZOLAM 100 MG in SODIUM CHLORIDE 0.9% 80 ML IV PRN (00:52)
== END 2019-12-20 01:19 | disposition expired | DRG 207 ==
LOC: N.CC 22:53 → SUATTDRO 22:53
PROVIDERS: ADMIT Surgery; ATTEND Family Medicine